=== PATIENT | female | born 1955 | race African-American/Black ===

== ENCOUNTER 2017-11-12 05:57 | Emergency (ER) | payer OTHER ==
[2017-11-12] MEDS ORDERED: Ziprasidone 20 MG CAP ONE (07:57)
--- NOTE | 2017-11-12 09:36 | CT ---
CT CERVICAL SPINE: Date: 11/12/17 Multiple axial tomograms obtained through the cervical spine with multiplanar reconstruction. INDICATION: Fall at half-way with injury to neck. FINDINGS: Cervical vertebra maintain normal height and alignment. There are degenerative changes of the cervica l spine with loss of the disc space at multiple levels. Degenerative spurring and spondylytic changes are most pronounced at the C5-6 level. No evidence of fracture identified. IMPRESSION: No evidence of cervical spine fracture. POS: [facility]
--- NOTE | 2017-11-12 09:37 | CT ---
CT BRAIN WITHOUT CONTRAST: HISTORY: Trauma, fall, right periorbital hematoma, history of dementia. FINDINGS: Comparison is made with the exam of 10/25/17. Infarction in the left parietooccipital lobe is again noted. Changes of cortical atrophy, and chroni c small-vessel ischemic disease are again seen. The ventricular size is stable and the basilar ciste rns patent. No evidence of acute infarct, hemorrhage, midline shift, or abnormal extraaxial fluid co llections are seen. The bony calvarium is intact. The visualized paranasal sinuses and mastoid air cells are well aerated. Old fracture of the right lamina papyracea is again noted. There is a right -sided soft tissue periorbital swelling/contusion. IMPRESSION: No CT evidence of acute intracranial process. POS: [facility]
--- NOTE | 2017-11-12 10:14 | CT ---
CT FACIAL BONES: Multiple axial tomograms were obtained through the facial bones with multiplaner reconstruction. HISTORY: [facility] to face. FINDINGS: Nasal bones appear intact. Evaluation of the orbits revealed a defect in the lamina papyracea anteriorly on the right. This may represent an old injury. There is no mucosal edema in the surrounding ethmoid air cells which would indicate a probable old stable injury. The orbits are otherwise intact. The paranasal sinuses are well aerated with no significant mucosal edema. The zygoma are intact. Maxilla appears intact. Mandible appears intact. The soft tissue windows reveal a large hematoma in the soft tissues of the right face involving the c heek anterior to the right maxillary sinus. IMPRESSION: 1. A large soft tissue hematoma subcutaneous tissues of the right face anterior to the right maxilla ry sinus. 2. There is a defect in the lamina papyracea anteriorly on the right. This probably represents an o ld injury as discussed above. 3. No other evidence of acute facial bone fracture. POS: [facility]
== END 2017-11-12 10:28 | disposition home or self-care (01) ==
LOC: ERS 05:57
DX: S00.83XA Contusion of other part of head, initial encounter (principal); R29.6 Repeated falls; F03.90 Unspecified dementia, unspecified severity, without behavioral disturbance, psychotic disturbance, mood disturbance, and anxiety; E11.9 Type 2 diabetes mellitus without complications; F31.9 Bipolar disorder, unspecified; W19.XXXA Unspecified fall, initial encounter
CPT/HCPCS: 70450; 70486; 72125

== ENCOUNTER 2017-12-07 16:20 | Inpatient (IN) | payer OTHER ==
[2017-12-07] MEDS ORDERED: Piperacillin/Tazobactam 4.5 GM VIAL ONE (17:43)
[2017-12-07] MEDS ORDERED: Lorazepam 2 MG/ML VIAL ONE (17:43)
[2017-12-07 17:54] LABS: #Eosinphils 0.1 thou/uL (0.0-0.7); #Lymphocytes 2.1 thou/uL (1.20-3.40); #Monocytes 0.7 thou/uL (0.11-0.59); %Basophils 0.2 % (0.0-1.0); %Eosinophils 0.8 % (0.0-10.0); %Lymphocytes 14.1 % (21.0-51.0); %Monocytes 4.7 % (0.0-10.0); %Neutrophils 80.1 % (42.0-75.0); Hemoglobin 11.8 g/dL (12.0-16.0); Mean Corpuscular HGB CONC 33.2 g/dL (32.0-36.0); Mean Corpuscular Hemoglobin 27.6 pg (27.0-31.0); Mean Corpuscular Volume 83.2 fl (81.0-99.0); Mean Platelet Volume 7.9 fL (7.4-10.4); Platelet Count 342 thou/uL (130-400); RBC Distribution Width 13.7 % (11.5-14.5); Red Blood Cell (RBC) Count 4.28 mill/uL (4.20-5.40)
[2017-12-07 18:07] LABS: ALT (SGPT) 29 U/L (8-55); AST (SGOT) 22 U/L (5-34); Albumin 3.7 g/dL (3.4-4.8); Alkaline Phosphatase 146 U/L (40-150); Anion Gap 15 mmol/L (10-20); BUN (Urea Nitrogen) 14 mg/dL (9.8-20.1); Bilirubin, Total 0.4 mg/dL (0.2-1.2); Calc. Creatinine Clearance 0 mL/min (70-130); Calcium 9.5 mg/dL (7.8-10.44); Carbon Dioxide 24 mmol/L (23-31); Chloride 107 mmol/L (98-107); Estimated GFR-MDRD Greater than 90; Globulin 3.5 g/dL (2.4-3.5); Glucose 128 mg/dL (80-115); Potassium 4.1 mmol/L (3.5-5.1); Protein, Total 7.2 g/dL (6.0-8.3); Sodium 142 mmol/L (136-145)
[2017-12-07] MEDS ORDERED: Clindamycin/D5W 900 mg/50 ml Premix Bag ONE (18:07)
--- NOTE | 2017-12-07 18:47 | RAD ---
RIGHT FOOT THREE VIEWS: 12/07/2017 HISTORY: Wound of the left great toe. COMPARISON: None. FINDINGS: There is suggestion of soft tissue swelling involving the dorsal and plantar aspect of the forefoot. There is soft tissue swelling involving the toes, especially the second toe and the great toe. No r adiopaque foreign body or subcutaneous gas. No displaced fracture or dislocation. There is subtle, cortical irregularity involving the distal cortex of the second distal phalanx, suspicious for possib le osteomyelitis. IMPRESSION: Soft tissue swelling, most pronounced at the level of the great toe and second toe. There is mild co rtical irregularity involving the distal phalanx of the second toe, on image 3 of 3, which may signif y osteomyelitis in the proper clinical setting. This could be best assessed via MRI. POS: [facility]
[2017-12-07] MEDS ORDERED: Morphine 4 MG/ML VIAL SLOW IVP PRN ×3 (21:00→22:07)
[2017-12-07] MEDS ORDERED: Ondansetron HCl/PF 4 MG/2 ML Vial IVP PRN ×2 (21:02→22:05)
[2017-12-07] MEDS ORDERED: Sodium Chloride 0.9% 1,000 ML IV SCH (21:02)
[2017-12-07] MEDS ORDERED: Ondansetron ODT 4 MG TAB SL PRN (21:02)
[2017-12-07] MEDS ORDERED: HYDROcodone/Acetaminophen 5/325 mg Tablet PO PRN (22:05)
[2017-12-07] MEDS ORDERED: Acetaminophen 650 MG Suppository PR PRN (22:05)
[2017-12-07] MEDS ORDERED: Loratadine 10 MG TAB PO PRN (22:05)
[2017-12-07] MEDS ORDERED: Benzonatate 100 MG CAP PO PRN (22:05)
[2017-12-07] MEDS ORDERED: Senokot 8.6 MG TAB PO PRN (22:05)
[2017-12-07] MEDS ORDERED: cloNIDine 0.1 MG TAB PO PRN (22:05)
[2017-12-07] MEDS ORDERED: Mag-Al 1200 mg/1200 mg/30 ML UDCUP PO PRN (22:05)
[2017-12-07] MEDS ORDERED: Calcium Carbonate 500 MG ChewTAB PO PRN (22:05)
[2017-12-07] MEDS ORDERED: Bisacodyl 10 MG SUPP PR PRN (22:05)
[2017-12-07] MEDS ORDERED: Diabetic Tussin 200 MG/10 ML UDCUP PO PRN (22:05)
[2017-12-07] MEDS ORDERED: Acetaminophen 325 MG TAB PO PRN (22:05)
[2017-12-07] MEDS ORDERED: Nitroglycerin 0.4 MG TAB (25 Tab Bottle) SL PRN (22:05)
[2017-12-07] MEDS ORDERED: Bisacodyl 5 MG TAB PO PRN (22:05)
[2017-12-07] MEDS ORDERED: Ziprasidone 20 MG VIAL IM PRN (22:10)
[2017-12-07] MEDS ORDERED: Sterile Water 10 ML VIAL FS PRN (22:28)
[2017-12-07] MEDS ORDERED: Piperacillin/Tazobactam 4.5 GM in Sodium Chloride 0.9% 100 ML IVPB SCH (23:59)
[2017-12-07] MEDS ORDERED: Piperacillin/Tazobactam 3.375 GM in Sodium Chloride 0.9% 100 ML IVPB SCH (23:59)
[2017-12-08] MEDS: Sodium Chloride 0.9% 1,000 ML IV SCH ×2 (00:16→12:04)
[2017-12-08] MEDS: hydrALAZINE 20 MG/ML VIAL SLOW IVP PRN ×2 (00:20→18:18)
[2017-12-08] MEDS ORDERED: Clindamycin/D5W 900 MG in Premix Bag 1 BAG IVPB SCH (02:00)
[2017-12-08 03:00] VITALS: BMI 24.6
[2017-12-08] MEDS ORDERED: Loperamide HCl 2 MG CAP PO PRN ×2 (04:15→04:33)
[2017-12-08] MEDS ORDERED: Dextrose 50% Abboject 50 ML SYRINGE SLOW IVP PRN (04:16)
[2017-12-08] MEDS ORDERED: Dextrose 5% in Water 1,000 ML IV PRN (04:16)
[2017-12-08] MEDS ORDERED: Insulin Regular 300 UNITS/3 ML VIAL SC PRN ×2 (04:16)
[2017-12-08 05:19] LABS: #Eosinphils 0.2 thou/uL (0.0-0.7); #Lymphocytes 1.9 thou/uL (1.20-3.40); #Monocytes 0.8 thou/uL (0.11-0.59); #Neutrophils 10.7 thou/uL (1.40-6.50); %Basophils 0.3 % (0.0-1.0); %Eosinophils 1.4 % (0.0-10.0); %Monocytes 5.7 % (0.0-10.0); %Neutrophils 78.7 % (42.0-75.0); Hemoglobin 12.3 g/dL (12.0-16.0); Mean Corpuscular HGB CONC 33.8 g/dL (32.0-36.0); Mean Corpuscular Hemoglobin 28.2 pg (27.0-31.0); Mean Corpuscular Volume 83.4 fl (81.0-99.0); Mean Platelet Volume 8.2 fL (7.4-10.4); Platelet Count 348 thou/uL (130-400); RBC Distribution Width 13.6 % (11.5-14.5); Red Blood Cell (RBC) Count 4.35 mill/uL (4.20-5.40); White Blood Cell (WBC) Count 13.6 thou/uL (4.8-10.8)
[2017-12-08 05:53] LABS: Anion Gap 13 mmol/L (10-20); BUN (Urea Nitrogen) 13 mg/dL (9.8-20.1); Calc. Creatinine Clearance 88 mL/min (70-130); Calcium 9.3 mg/dL (7.8-10.44); Carbon Dioxide 22 mmol/L (23-31); Chloride 108 mmol/L (98-107); Estimated GFR-MDRD Greater than 90; Glucose 129 mg/dL (80-115); Sodium 139 mmol/L (136-145)
--- NOTE | 2017-12-08 05:54 | HP ---
DATE OF ADMISSION: 12/07/2017 PRIMARY CARE PHYSICIAN: Dr. Iván Liang. CHIEF COMPLAINT: Left-toe wound. HISTORY OF PRESENT ILLNESS: Ms. Perez is a 62-year-old female with past medical history of severe de mentia, who [facility] the above-mentioned complaint. History is diane nly obtained by the chart review as the patient has severe dementia and is unable to provide any hist ory. According to the EMR, the patient fell twice earlier this month. Most recently, she was seen in the ER on 12/02/2017 and was found to have right orbital fracture along with nasal fractures. She was chicas pposed to follow up with oral maxillofacial surgeon as an outpatient. She was sent to the ER for com plaints of left second-toe wound. She underwent general evaluation in the ER including a foot x-ray, which was concerning for osteomyelitis. She was otherwise hemodynamically stable. She did have maru kocytosis with left shift with WBCs of 15. She also was found to have elevated lactic acid at 2.4. She was given empiric antibiotics and blood cultures were obtained and she is now being admitted for further evaluation and care. PAST MEDICAL HISTORY: Severe dementia, otherwise unable to corroborate. PAST SURGICAL HISTORY: None as per the EMR. PSYCHIATRIC HISTORY: Bipolar disorder. SOCIAL HISTORY: No history of drug, tobacco, or alcohol abuse as per the EMR. She is a [facility]iary resident. ALLERGIES: No known medication allergies. FAMILY HISTORY: Unable to obtain as the patient has severe dementia. CURRENT MEDICATIONS: As per the record Abilify 20 mg at bedtime, memantine 10 mg in the morning, tra zodone 50 mg at bedtime, metformin 1000 mg p.o. b.i.d., aspirin 81 mg daily, Depakote 2 capsules p.o. b.i.d., Geodon 20 mg p.o. b.i.d., loperamide as needed, lithium carbonate 150 mg p.o. b.i.d., Lantus 15 units b.i.d., and Potassium chloride 10 mg daily. REVIEW OF SYSTEMS: Unobtainable as the patient has severe dementia and is not following any commands verbal or tactile at this time. LABORATORY DATA: CBC shows WBCs at 15 with 80% neutrophils, hemoglobin 11.8, otherwise unremarkable. Serum chemistry shows blood sugar of 128, lactic acid 2.4. Foot x-ray by my review shows concern f or left second-toe osteomyelitis including cortical irregularity of the distal phalanx. PHYSICAL EXAMINATION: VITAL SIGNS: Most recent vital signs temperature 98, pulse of 102, blood pressure 184/106, respirati ons 18, saturating 95% on room air. GENERAL: No acute distress. She is somnolent and difficult to arouse and does not follow any comman ds, but appears comfortable. HEENT: Mucous membrane is slightly dry. No oropharyngeal exudate or erythema. Head is normocephali c, atraumatic. Pupils equal, reactive to light truly. NECK: Supple without any lymphadenopathy, JVD, or bruit. CHEST: Clear to auscultation without any wheezing, rales, or rhonchi. Rate and rhythm is regular wi thout any murmur, rubs, or gallops. ABDOMEN: Soft, nontender, nondistended. EXTREMITIES: Free of any cyanosis, clubbing, or edema. Left second toe examination reveal erythema and some mild swelling of the toes, extending upwards into the foot with dried shallow ulcer on the t ip of the left second toe. NEUROLOGIC: Largely nonfocal, but unable to complete because of the severe dementia that the patient cannot follow any commands. PSYCHIATRIC: Somnolent and calm at this time. IMPRESSION AND PLAN: 1. Left second toe osteomyelitis. At this time, we will continue the empiric antibiotic and follow the results of the blood culture. Consult General Surgery for possible need for I&D versus amputatio n. Start her on gentle IV fluid hydration. 2. Sepsis secondary to #1 with elevated lactic acid. We will start hydration and IV antibiotics as above. 3. Orbital and nasal bone fracture. I do not think that the patient has any capability of keeping h er outpatient appointment for the recent fractures. We will consult Oral Maxillofacial Surgeon while the patient is here and provide her with empiric pain medications. 4. Severe dementia. Restart home medications with caution. 5. Deep venous thrombosis and gastrointestinal prophylaxis. 6. Possible diabetes mellitus, as the patient takes insulin and metformin. We will start her on ins ulin sliding scale and hold the metformin and Lantus for now. The patient might need to be n.p.o. fo r possible surgery. DISPOSITION: Ms. Perez is currently being admitted for left second-toe osteomyelitis. She has sever e dementia at this time. Estimated length of stay is at least 2-3 midnight. Further management will depend upon her clinical course.
[2017-12-08] MEDS: Piperacillin/Tazobactam 3.375 GM in Sodium Chloride 0.9% 100 ML IVPB SCH ×3 (06:21→18:18)
[2017-12-08] MEDS ORDERED: Vancomycin HCl 1 GM in Premix Bag 1 BAG IVPB SCH (07:00)
[2017-12-08] MEDS: Potassium Chloride 10 MEQ TAB PO SCH (08:06)
[2017-12-08] MEDS: Divalproex Sodium 125 mg Sprinkle Capsule PO SCH ×2 (08:06→20:33)
[2017-12-08] MEDS: Ziprasidone 20 MG CAP PO SCH ×2 (08:07→18:17)
[2017-12-08] MEDS: Lithium Carbonate 150 MG CAP PO SCH ×2 (08:07→20:34)
[2017-12-08] MEDS ORDERED: Ziprasidone 20 MG VIAL IM SCH (08:30)
[2017-12-08] MEDS: Vancomycin HCl 1 GM in Premix Bag 1 BAG IVPB SCH ×2 (08:58→20:29)
[2017-12-08] MEDS: Enoxaparin Sodium 40 MG/0.4 ML SYRINGE SC SCH (08:58)
[2017-12-08] MEDS: Famotidine/PF 20 mg/2ml Vial SLOW IVP SCH (12:04)
--- NOTE | 2017-12-08 12:49 | PDOC.PN ---
- Subjective Encounter Start Date: 12/08/17 Encounter Start Time: 12:52 Subjective: No acute events overnight. -: Has been combative and aggressive. Only oriented to person occasionally. -: Difficult to reorient. - Objective MAR Reviewed: Yes Vital Signs & Weight: Vital Signs (12 hours) Temp Pulse Resp BP BP BP Pulse Ox 12/08/17 11:20 97.4 F L 80 16 182/81 H 99 12/08/17 08:00 97.6 F 87 16 121/94 H 121/94 H 95 12/08/17 04:00 97.6 F 86 16 152/88 H 95 Weight Weight 139 lb Result Diagrams: 12/08/17 04:33 12/08/17 04:33 Additional Labs: Accuchecks 12/08/17 04:50 POC Glucose 131 H Phys Exam - Physical Examination Constitutional: NAD HEENT: PERRLA, moist MMs, sclera anicteric, oral pharynx no lesions Neck: no JVD, supple, full ROM Respiratory: no wheezing, no rales, no rhonchi, clear to auscultation bilateral Cardiovascular: RRR, no significant murmur, no rub Gastrointestinal: soft, non-tender, no distention, positive bowel sounds Musculoskeletal: no edema, pulses present Unable to cooperate 2/2 severe dementia. Skin: no rash, normal turgor Dx/Plan (1) Toe osteomyelitis, left Code(s): M86.9 - OSTEOMYELITIS, UNSPECIFIED Status: Acute Comment: Started on IV antibiotics. Surgical consult in place. f/u blood cultures. (2) Sepsis Code(s): A41.9 - SEPSIS, UNSPECIFIED ORGANISM Status: Acute Qualifiers: Sepsis type: sepsis due to unspecified organism Qualified Code(s): A41.9 - Sepsis, unspecified organism Comment: Improving. F/u blood cultures. Continue IVF and antibiotics. f/u blood cultures. (3) Orbital fracture Code(s): S02.80XA - FX OTH SKULL AND FACIAL BONES, UNSPECIFIED SIDE, INIT Status: Acute Qualifiers: Encounter type: subsequent encounter Fracture healing: with routine healing Comment: OMF reviewed. Will see patient on outpatient basis. (4) Severe dementia Code(s): F03.90 - UNSPECIFIED DEMENTIA WITHOUT BEHAVIORAL DISTURBANCE Status: Chronic Comment: Delirium precautions. f/u UDS and UA (5) DM2 (diabetes mellitus, type 2) Status: Chronic Qualifiers: Diabetes mellitus superintendent container terminal insulin use: with superintendent container terminal use Diabetes mellitus complication status: with unspecified complications Qualified Code(s) : E11.8 - Type 2 diabetes mellitus with unspecified complications; Z79.4 - custodial (current) use of insulin; Z79.4 - exterminator helper termite (current) use of insulin; Z79.4 - custodial (current) use of insulin; Z79.4 - custodial (current) use of insulin Comment: Continue SSI, obtain SSI. Controlled. - Plan cont current plan of care, continue antibiotics, DVT proph w/lovenox * . Review of Systems - Medications/Allergies Allergies/Adverse Reactions: Allergies Allergy/AdvReac Type Severity Reaction Status Date / Time No Known Drug Allergies Allergy Verified 12/07/17 20:52 Medications: Current Medications Acetaminophen (Tylenol) 650 mg PO Q4H PRN PRN Reason: Headache/Fever or Pain Acetaminophen (Tylenol) 650 mg TN Q4H PRN PRN Reason: Headache/Fever or Pain Hydrocodone Bitart/Acetaminophen ([place] 5/325) 1 tab PO Q4H PRN PRN Reason: Moderate Pain (4-6) Al Hydroxide/Mg Hydroxide (Maalox) 30 ml PO Q6H PRN PRN Reason: Heartburn or Indigestion Aripiprazole (Abilify) 20 mg PO HS [facility] Aspirin (Aspirin Chewable) 81 mg PO DAILY [facility] Last Admin: 12/08/17 08:06 Dose: Not Given Benzonatate (Tessalon) 100 mg PO Q4H PRN PRN Reason: Cough Bisacodyl (Dulcolax) 10 mg PO DAILYPRN PRN PRN Reason: Constipation Bisacodyl (Dulcolax) 10 mg TN Q24H PRN PRN Reason: Constipation Calcium Carbonate (Tums) 1,000 mg PO Q4H PRN PRN Reason: Heartburn or Indigestion Clonidine (Catapres) 0.1 mg PO Q4H PRN PRN Reason: Systolic BP > 160 Dextrose/Water (Dextrose 50%) 25 gm SLOW IVP PRN PRN PRN Reason: Hypoglycemia Divalproex Sodium (Depakote Sprinkle) 250 mg PO BID [facility] Last Admin: 12/08/17 08:06 Dose: Not Given Enoxaparin Sodium (Lovenox) 40 mg SC 0900 [facility] Last Admin: 12/08/17 08:58 Dose: 40 mg Famotidine (Pepcid) 20 mg SLOW IVP Q12HR [facility] Last Admin: 12/08/17 12:04 Dose: Not Given Glucagon (Glucagon) 1 mg IM PRN PRN PRN Reason: Hypoglycemia Guaifenesin (Robitussin Sf) 200 mg PO Q4H PRN PRN Reason: Cough Hydralazine HCl (Apresoline) 10 mg SLOW IVP Q4H PRN PRN Reason: Systolic BP > 170 Last Admin: 12/08/17 00:20 Dose: 10 mg Sodium Chloride (Normal Saline 0.9%) 1,000 mls @ 75 mls/hr IV .[id number] [facility] Last Admin: 12/08/17 12:04 Dose: 1,000 mls Vancomycin HCl 1 gm/ Device 200 mls @ 200 mls/hr IVPB 0600,1800 [facility] Last Admin: 12/08/17 08:58 Dose: 200 mls Piperacillin Sod/Tazobactam (Sod 3.375 gm/ Sodium Chloride) 100 mls @ 200 mls/ hr IVPB 0530,1130,1730,2330 [facility] Last Admin: 12/08/17 12:02 Dose: 100 mls Dextrose/Water (D5w) 1,000 mls @ 0 mls/hr IV .Q0M PRN; As Directed PRN Reason: Hypoglycemia Insulin Human Regular (Humulin R) 0 units SC .MODERATE SLIDING SC PRN PRN Reason: Moderate Correctional Scale Insulin Human Regular (Humulin R) 0 units SC .BEDTIME SLIDING SC PRN PRN Reason: Bedtime Correctional Scale Lactulose (Lactulose) 20 gm PO DAILYPRN PRN PRN Reason: Constipation [place] Carbonate ([place] Carbonate) 150 mg PO BID [facility] Last Admin: 12/08/17 08:07 Dose: Not Given Loperamide HCl (Imodium) 4 mg PO ONE PRN PRN Reason: DIARRHEA/ LOOSE STOOL Stop: 01/07/18 04:16 Loperamide HCl (Imodium) 2 mg PO PRN PRN PRN Reason: Diarrhea/Loose Stools Loratadine (Claritin) 10 mg PO DAILYPRN PRN PRN Reason: Sinus Symptoms Memantine (Namenda) [facility] [place] Last Admin: 12/08/17 08:06 Dose: Not Given Miscellaneous Medication (Pharmacy To Dose) 1 each IVPB PRN PRN PRN Reason: SSSI, R/O OSTEO Morphine Sulfate (Morphine) 2 mg SLOW IVP Q4H PRN PRN Reason: Severe Pain (7-10) Nitroglycerin (Nitrostat) 0.4 mg SL Q5MIN PRN PRN Reason: Chest Pain Ondansetron HCl (Zofran) 4 mg IVP Q6H PRN PRN Reason: Nausea/Vomiting Potassium Chloride (Klor-Con 10) 10 meq PO QAM[facility] Last Admin: 12/08/17 08:06 Dose: Not Given Senna (Senokot) 2 tab PO HSPRN PRN PRN Reason: Constipation Sterile Water (Water For Injection) 1.2 ml FS Q4H PRN PRN Reason: GEODON RECONSTITUTION Trazodone HCl (Desyrel) 50 mg PO [facility] Ziprasidone (Geodon) 10 mg IM Q4H PRN PRN Reason: Agitation Ziprasidone (Geodon) 20 mg PO BID-[facility] Last Admin: 12/08/17 08:07 Dose: Not Given
[2017-12-08 13:08] LABS: Amphetamine Not Detected (NotDetected); Barbiturates Screen Not Detected (NotDetected); Benzodiazepine Screen Detected (NotDetected); Cocaine Metabolite Screen Not Detected (NotDetected); Medtox Control Line Valid? VALID (VALID); Medtox Reader # READER 1; Methadone Not Detected (NotDetected); Methamphetamine Not Detected (NotDetected); Opiate Screen Not Detected (NotDetected); Oxycodone Screen Not Detected (NotDetected); Phencyclidine (PCP) Not Detected (NotDetected); THC/Cannabinoid Screen Not Detected (NotDetected); Tricyclic Screen Not Detected (NotDetected)
[2017-12-08 16:19] LABS: Bilirubin Negative (Negative); Blood, Urine Small (Negative); Clarity CLOUDY (Clear); Glucose, Urine (Dipstick) Negative (Negative); Leukocyte Large (Negative); Nitrite Negative (Negative); Protein, Urine (Dipstick) 30 mg/dL (Neg-Trace); pH, Urine 7.5 (5.0-9.0)
[2017-12-08 16:21] LABS: Bacteria/HPF None Seen HPF (None Seen); Hyaline Casts/LPF 0-3 HYALINE CAST LPF (0-3 Hyaline); Squamous Epithelial None Seen HPF (0-3)
[2017-12-08] MEDS: traZODone HCl 50 MG TAB PO SCH (20:32)
[2017-12-08] MEDS: Aripiprazole 10 MG TAB PO SCH (20:34)
[2017-12-08] MEDS: Famotidine 40 MG/4 ML VIAL SLOW IVP SCH (21:50)
--- NOTE | 2017-12-08 23:04 | CON ---
DATE OF CONSULTATION: 12/08/2017 REQUESTING PHYSICIAN: Dr. Chamberlain. CHIEF COMPLAINT: Osteomyelitis of the right second toe. HISTORY OF PRESENT ILLNESS: The patient is a 62-year-old woman with diabetes and has apparently a bi polar disorder and severe dementia who is a jail resident. The caretakers at the nursing sara e sent her to the hospital apparently because of red weepy changes to her right second toe and she sands d plain film findings suggestive of osteomyelitis involving the distal phalanx. We were requested to evaluate the patient from a vascular standpoint by Dr. Chamberlain. The patient is noncommunicative in the sense that while verbose and fluent, she is nonsensical essentially perseverating. HOME MEDICATIONS: Listed as Abilify, memantine, trazodone, Depakote, Geodon, lithium carbonate, metf ormin, baby aspirin, Lantus insulin, potassium, p.r.n. Tylenol, and p.r.n. loperamide. ALLERGIES: There are no medical allergies reported. REVIEW OF SYSTEMS AND FAMILY HISTORY: She is not able to give any sort of review of system or family history. PHYSICAL EXAMINATION: GENERAL: She looks much older than her stated age and talks nonsensical phrases. She is wearing a d iaper and is restrained, other examiners report her as being at times combative and aggressive. VITAL SIGNS: Her temperature is 98.2, heart rate 85, blood pressure 188/77. LUNGS: She has clear breath sounds. CARDIOVASCULAR: Regular rate and rhythm. EXTREMITIES: She has palpable radial pulses, palpable femoral pulses with the left. Perhaps being a little bit diminished, I am not able to palpate popliteal, dorsalis pedis or posterior tibial pulses . Capillary refill in the feet is somewhere around 1 to 1-1/2 seconds. SKIN: She has bruising about her right eye from her recent orbital fracture and she has some abrasio ns on her right knee and pretibial region. The right second toe is swollen, red and the very tip of it is moist and macerated, consistent with evolving gangrenous changes. The lower legs are slightly cool and there are some atrophic skin changes. LABORATORY DATA: Her white count on admission was 15 and this morning was 13.6, hemoglobin this morn ing was 12.3 and platelets 348,000. Electrolytes are normal. Glucose has been in the 120s, BUN 13, creatinine 0.67. LFTs are normal and albumin 3.7. IMPRESSION AND RECOMMENDATIONS: I would think that this patient is a very poor revascularization can didate and I would not really pursue much in the way of vascular workup. I would probably just simpl y start with amputation of that toe and even if that does not heal, I would be reluctant this severel y demented woman about pursuing revascularization.
[2017-12-09] MEDS: Famotidine/PF 20 mg/2ml Vial SLOW IVP SCH (00:23)
[2017-12-09] MEDS: Piperacillin/Tazobactam 3.375 GM in Sodium Chloride 0.9% 100 ML IVPB SCH ×4 (00:24→16:55)
[2017-12-09 05:57] LABS: #Eosinphils 0.2 thou/uL (0.0-0.7); #Lymphocytes 1.6 thou/uL (1.20-3.40); #Monocytes 0.9 thou/uL (0.11-0.59); #Neutrophils 9.6 thou/uL (1.40-6.50); %Basophils 0.1 % (0.0-1.0); %Eosinophils 1.8 % (0.0-10.0); %Lymphocytes 13.2 % (21.0-51.0); %Neutrophils 77.9 % (42.0-75.0); Hemoglobin 12.6 g/dL (12.0-16.0); Mean Corpuscular HGB CONC 33.7 g/dL (32.0-36.0); Mean Corpuscular Hemoglobin 27.6 pg (27.0-31.0); Mean Corpuscular Volume 81.9 fl (81.0-99.0); Mean Platelet Volume 7.9 fL (7.4-10.4); Platelet Count 372 thou/uL (130-400); RBC Distribution Width 13.3 % (11.5-14.5); Red Blood Cell (RBC) Count 4.58 mill/uL (4.20-5.40); White Blood Cell (WBC) Count 12.3 thou/uL (4.8-10.8)
[2017-12-09 06:09] LABS: Hemoglobin A1c 6.6 % (4.0-6.0); Vancomycin, Trough 11.2 ug/mL
[2017-12-09 06:13] LABS: Anion Gap 15 mmol/L (10-20); BUN (Urea Nitrogen) 11 mg/dL (9.8-20.1); Calc. Creatinine Clearance 88 mL/min (70-130); Calcium 9.3 mg/dL (7.8-10.44); Carbon Dioxide 23 mmol/L (23-31); Chloride 103 mmol/L (98-107); Estimated GFR-MDRD Greater than 90; Glucose 117 mg/dL (80-115); Potassium 3.8 mmol/L (3.5-5.1); Sodium 137 mmol/L (136-145)
[2017-12-09] MEDS ORDERED: Vancomycin HCl 1.5 GM in Sodium Chloride 0.9% 250 ML 300 ML IVPB SCH (06:45)
[2017-12-09] MEDS: Sodium Chloride 0.9% 1,000 ML IV SCH ×3 (07:07→21:25)
[2017-12-09] MEDS: Vancomycin HCl 1 GM in Premix Bag 1 BAG IVPB SCH (07:22)
[2017-12-09] MEDS ORDERED: Amlodipine 10 MG TAB PO SCH (08:00)
[2017-12-09] MEDS: Potassium Chloride 10 MEQ TAB PO SCH (08:35)
[2017-12-09] MEDS: Enoxaparin Sodium 40 MG/0.4 ML SYRINGE SC SCH (08:35)
[2017-12-09] MEDS: Ziprasidone 20 MG CAP PO SCH ×2 (08:35→16:58)
[2017-12-09] MEDS: Divalproex Sodium 125 mg Sprinkle Capsule PO SCH ×2 (08:35→20:46)
[2017-12-09] MEDS: Amlodipine 10 MG TAB PO SCH (08:35)
[2017-12-09] MEDS: Lithium Carbonate 150 MG CAP PO SCH ×2 (08:36→20:46)
--- NOTE | 2017-12-09 08:38 | CON ---
DATE OF CONSULTATION: 12/09/2017 CHIEF COMPLAINT: Right second toe diabetic infection. HISTORY: Ms. Perez is a 62-year-old woman with severe dementia who was sent to the emergency room fr om the shelter for redness and swelling of her right second toe. She cannot give me any history regarding this toe and whether she might have injured it or had a chronic sore there. She cannot te ll me whether she has had any drainage or fever. Her answers to questions are mostly nonsensical. H owever, she has not had any high fevers since being in the hospital. PAST MEDICAL HISTORY: As per the chart, diabetes, dementia, and history of alcohol abuse. PAST SURGICAL HISTORY: Unknown. The patient has a healed lower midline incision, but cannot tell me what operation she had. OUTPATIENT MEDICATIONS: According to the computer record include Glargine insulin 15 units subcu b.i .d., metformin 1000 mg p.o. b.i.d., Abilify 20 mg p.o. at bedtime, aspirin 81 mg p.o. daily, divalpro ex 250 mg p.o. b.i.d., lithium 150 mg p.o. b.i.d., memantine 10 mg p.o. q.a.m., potassium chloride 10 mEq p.o. daily, Geodon 20 mg p.o. b.i.d. and p.r.n.s including trazodone, Tylenol and loperamide. INPATIENT MEDICATIONS: Amlodipine, Abilify, aspirin, sliding scale insulin, divalproex, Lovenox, Pe pcid, [place], memantine, Zosyn, potassium, vancomycin, Geodon and multiple PRNS. PSYCHIATRIC HISTORY: Bipolar disease and dementia per the chart. REVIEW OF SYSTEMS: Not obtainable as the patient is not cooperative and does not answer questions me aningfully. SOCIAL HISTORY: Per daughter, the patient was a smoker for many years, but quit about 20 years ago a nd she did drink in the past, but not recently. Drug use is unknown. PHYSICAL EXAMINATION: GENERAL: The patient was somewhat agitated when I saw her, but did not appear to be in any physical distress. VITAL SIGNS: She has been afebrile since her admission. Heart rate is in the 70s and 80s. Blood pr essure is variable ranging from the 150s to 180s systolic with normal diastolic in the 70s. She has been 97-98% saturated on room air and has a respiratory rate is 16-18. HEENT: Unremarkable. I do not appreciate any lymphadenopathy or thyroid nodules. HEART: Regular in its rate and rhythm without murmurs, rubs or gallops. LUNGS: She has occasional wheezing, but is otherwise clear.. ABDOMEN: Soft and nondistended. She does not exhibit any tenderness to palpation. She has a healed lower midline incision. No obvious hernias. EXTREMITIES: Extremities are cool and I do not appreciate any pedal or popliteal pulses bilaterally. She does have normal femoral pulses. She has some thinning of the skin and very little hair on her lower legs. Her right second toe is swollen and an abscess surrounding the nail bed. There is a dr farrah point just above the base of the nail which probes fairly deep likely to the swelling is confi janes to the tip of the toe. The remainder of the toe is fairly healthy in appearance. She does not h ave any lymphangitic streaking, swelling or cellulitis. NEURO: No obvious focal deficits, the patient is moving all extremities spontaneously, but does not cooperate with exam. PSYCHIATRIC: Does not seem to comprehend or appropriately answer any questions. Her speech is compr ehensible, but does not make sense. LABORATORY DATA: White count is elevated at 12 to 13. This is down somewhat from 15 when she was ad mitted. She does have a left shift. Electrolytes and renal function are normal. Blood sugars have ranged from 117 to 131, hemoglobin A1c is 6.6. UA was positive for blood, leukocyte esterase, red ce lls and white cells and had some protein in it as well. Toxicology was positive for benzodiazepines. Her lithium level was 0.13 and her valproate level was 18.4. Blood cultures are no growth to date. I do not see a urine culture. X-ray of the foot at the time of her admission showed findings suspicious for osteomyelitis of the tu ft of the distal phalanx. ASSESSMENT: Diabetic infection of the right second toe with physical findings and x-ray consistent w ith osteomyelitis of the distal phalanx. I have recommended amputation. She has been seen by Vascul ar Surgery and they did not feel that she is a candidate for revascularization, although they agree t hat her peripheral circulation is abnormal. I do not think she is a candidate for hyperbaric therapy either because of her agitation, but we will try to get her fitted with a VAC dressing postoperative ly and hopefully this will heal. If the wound is clean at the level of the amputation as I expect it will be, then I will likely place a VAC dressing for a short period of time and then do a delayed pr imary closure since I doubt that the patient will be tolerant of a VAC dressing ferry terminal agent. If she do es not heal, then I will ask Vascular Surgery to consider angiography. She may be a candidate for an gioplasty if there is something focal in the femoral vessels, although she would require anesthesia f or even an angiogram due to her severe dementia. I did speak with her daughter regarding the patient's diagnosis and recommended treatment and she is in agreement with the plan. She understands the risks of surgery which include, but are not limited to bleeding, infection, risks of anesthesia, failure to heal, and need for further procedures.
[2017-12-09] MEDS: Famotidine 40 MG/4 ML VIAL SLOW IVP SCH ×2 (08:39→21:22)
[2017-12-09] MEDS ORDERED: Midazolam HCl 2 mg/2 ml Vial ONE (09:50)
[2017-12-09] MEDS ORDERED: Fentanyl 100 MCG/2 ML VIAL ONE (09:50)
[2017-12-09] MEDS ORDERED: Bupivacaine/Epinephrine 0.25% 30 ML VIAL ONE (10:10)
[2017-12-09] MEDS ORDERED: Bacitracin Zinc Ointment 30 gm TUBE ONE (10:10)
[2017-12-09] MEDS ORDERED: Promethazine HCl 25 MG/ML VIAL SLOW IVP PRN (11:23)
[2017-12-09] MEDS ORDERED: Ondansetron HCl/PF 4 MG/2 ML Vial IVP PRN (11:23)
[2017-12-09] MEDS ORDERED: Promethazine HCl 25 MG/ML VIAL IM PRN (11:23)
--- NOTE | 2017-12-09 14:21 | PDOC.PN ---
- Subjective Encounter Start Date: 12/09/17 Encounter Start Time: 14:24 Subjective: No complaints. -: No acute events overnight - Objective MAR Reviewed: Yes Vital Signs & Weight: Vital Signs (12 hours) Temp Pulse Resp BP BP Pulse Ox 12/09/17 11:55 97.7 F 91 18 122/72 97 12/09/17 08:35 75 12/09/17 08:00 98.3 F 75 18 98 12/09/17 07:38 97.5 F L 75 16 157/78 H 99 Weight Admit Weight 139 lb Weight 139 lb Result Diagrams: 12/09/17 05:11 12/09/17 05:11 Additional Labs: Accuchecks 12/09/17 12/08/17 12:03 17:58 POC Glucose 118 H 128 H Phys Exam - Physical Examination Constitutional: NAD HEENT: moist MMs, sclera anicteric, TM's clear Neck: no JVD, supple, full ROM Respiratory: no wheezing, no rales, no rhonchi, clear to auscultation bilateral Cardiovascular: RRR, no significant murmur, no rub Gastrointestinal: soft, non-tender, no distention, positive bowel sounds Musculoskeletal: no edema, pulses present Unable to cooperate w exam- severe dementia. Skin: no rash, normal turgor Dx/Plan (1) Toe osteomyelitis, left Code(s): M86.9 - OSTEOMYELITIS, UNSPECIFIED Status: Acute Comment: Scheduled for amputation today. On IV antibiotics. f/u blood cultures. (2) Sepsis Code(s): A41.9 - SEPSIS, UNSPECIFIED ORGANISM Status: Acute Qualifiers: Sepsis type: sepsis due to unspecified organism Qualified Code(s): A41.9 - Sepsis, unspecified organism Comment: Improving. F/u blood cultures. Continue IVF and antibiotics. f/u blood cultures. Urine cultures growing gram negative rods. Follow sensitivities. (3) Orbital fracture Code(s): S02.80XA - FX OTH SKULL AND FACIAL BONES, UNSPECIFIED SIDE, INIT Status: Acute Qualifiers: Encounter type: subsequent encounter Fracture healing: with routine healing Comment: OMF reviewed. Will see patient on outpatient basis. (4) Severe dementia Code(s): F03.90 - UNSPECIFIED DEMENTIA WITHOUT BEHAVIORAL DISTURBANCE Status: Chronic Comment: Delirium precautions. f/u UDS and UA (5) DM2 (diabetes mellitus, type 2) Status: Chronic Qualifiers: Diabetes mellitus long term care pharmacist insulin use: with detention use Diabetes mellitus complication status: with unspecified complications Qualified Code(s) : E11.8 - Type 2 diabetes mellitus with unspecified complications; Z79.4 - long-term (current) use of insulin; Z79.4 - termite control technician (current) use of insulin; Z79.4 - long-term (current) use of insulin; Z79.4 - long-term (current) use of insulin Comment: Continue SSI, obtain SSI. Controlled. A1c 6.6. - Plan cont current plan of care, plan discussed w/ family, DVT proph w/lovenox * . Review of Systems - Medications/Allergies Allergies/Adverse Reactions: Allergies Allergy/AdvReac Type Severity Reaction Status Date / Time No Known Drug Allergies Allergy Verified 12/07/17 20:52 Medications: Current Medications Acetaminophen (Tylenol) 650 mg PO Q4H PRN PRN Reason: Headache/Fever or Pain Acetaminophen (Tylenol) 650 mg SC Q4H PRN PRN Reason: Headache/Fever or Pain Hydrocodone Bitart/Acetaminophen ([place] 5/325) 1 tab PO Q4H PRN PRN Reason: Moderate Pain (4-6) Al Hydroxide/Mg Hydroxide (Maalox) 30 ml PO Q6H PRN PRN Reason: Heartburn or Indigestion Amlodipine Besylate (Norvasc) 10 mg PO DAILY [facility] Last Admin: 12/09/17 08:35 Dose: Not Given Aripiprazole (Abilify) 20 mg PO [facility] Last Admin: 12/08/17 20:34 Dose: Not Given Aspirin (Aspirin Chewable) 81 mg PO DAILY [facility] Last Admin: 12/09/17 08:35 Dose: Not Given Benzonatate (Tessalon) 100 mg PO Q4H PRN PRN Reason: Cough Bisacodyl (Dulcolax) 10 mg PO DAILYPRN PRN PRN Reason: Constipation Bisacodyl (Dulcolax) 10 mg SC Q24H PRN PRN Reason: Constipation Calcium Carbonate (Tums) 1,000 mg PO Q4H PRN PRN Reason: Heartburn or Indigestion Clonidine (Catapres) 0.1 mg PO Q4H PRN PRN Reason: Systolic BP > 160 Dextrose/Water (Dextrose 50%) 25 gm SLOW IVP PRN PRN PRN Reason: Hypoglycemia Divalproex Sodium (Depakote Sprinkle) 250 mg PO BID [facility] Last Admin: 12/09/17 08:35 Dose: Not Given Enoxaparin Sodium (Lovenox) 40 mg SC 0900 [facility] Last Admin: 12/09/17 08:35 Dose: Not Given Famotidine (Pepcid) 20 mg SLOW IVP Q12HR [facility] Last Admin: 12/09/17 08:39 Dose: 20 mg Fentanyl (Pacu-Sublimaze) 50 mcg SLOW IVP Q10MIN PRN PRN Reason: Moderate to Severe Pain (6-10) Stop: 12/09/17 14:23 Glucagon (Glucagon) 1 mg IM PRN PRN PRN Reason: Hypoglycemia Guaifenesin (Robitussin Sf) 200 mg PO Q4H PRN PRN Reason: Cough Hydralazine HCl (Apresoline) 10 mg SLOW IVP Q4H PRN PRN Reason: Systolic BP > 170 Last Admin: 12/08/17 18:18 Dose: 10 mg Sodium Chloride (Normal Saline 0.9%) 1,000 mls @ 75 mls/hr IV .[id number] [facility] Last Admin: 12/09/17 07:07 Dose: 1,000 mls Piperacillin Sod/Tazobactam (Sod 3.375 gm/ Sodium Chloride) 100 mls @ 200 mls/ hr IVPB 0530,1130,1730,2330 [facility] Last Admin: 12/09/17 11:55 Dose: 100 mls Dextrose/Water (D5w) 1,000 mls @ 0 mls/hr IV .Q0M PRN; As Directed PRN Reason: Hypoglycemia Vancomycin HCl 1.5 gm/ Sodium (Chloride) 300 mls @ 200 mls/hr IVPB 0600,1800 [facility] Insulin Human Regular (Humulin R) 0 units SC .MODERATE SLIDING SC PRN PRN Reason: Moderate Correctional Scale Insulin Human Regular (Humulin R) 0 units SC .BEDTIME SLIDING SC PRN PRN Reason: Bedtime Correctional Scale Lactulose (Lactulose) 20 gm PO DAILYPRN PRN PRN Reason: Constipation [place] Carbonate ([place] Carbonate) 150 mg PO BID [facility] Last Admin: 12/09/17 08:36 Dose: Not Given Loperamide HCl (Imodium) 4 mg PO ONE PRN PRN Reason: DIARRHEA/ LOOSE STOOL Stop: 01/07/18 04:16 Loperamide HCl (Imodium) 2 mg PO PRN PRN PRN Reason: Diarrhea/Loose Stools Loratadine (Claritin) 10 mg PO DAILYPRN PRN PRN Reason: Sinus Symptoms Memantine (Namenda) 10 mg PO [facility] Last Admin: 12/09/17 08:36 Dose: Not Given Miscellaneous Medication (Pharmacy To Dose) 1 each IVPB PRN PRN PRN Reason: SSSI, R/O OSTEO Morphine Sulfate (Morphine) 2 mg SLOW IVP Q4H PRN PRN Reason: Severe Pain (7-10) Nitroglycerin (Nitrostat) 0.4 mg SL Q5MIN PRN PRN Reason: Chest Pain Ondansetron HCl (Zofran) 4 mg IVP Q6H PRN PRN Reason: Nausea/Vomiting Ondansetron HCl (Pacu-Zofran) 4 mg IVP ONE PRN PRN Reason: Nausea/Vomiting Stop: 12/09/17 14:23 Potassium Chloride (Klor-Con 10) [address] [facility] Last Admin: 12/09/17 08:35 Dose: Not Given Promethazine HCl (Pacu-Phenergan) 6.25 mg SLOW IVP ONE PRN PRN Reason: Nausea/Vomiting Stop: 12/09/17 14:23 Promethazine HCl (Pacu-Phenergan) 6.25 mg IM ONE PRN PRN Reason: Nausea/Vomiting Stop: 12/09/17 14:23 Senna (Senokot) 2 tab PO HSPRN PRN PRN Reason: Constipation Sodium Chloride (Flush - Normal Saline) 10 ml IVF Q12HR [facility] Sodium Chloride (Flush - Normal Saline) 10 ml IVF PRN PRN PRN Reason: Saline Flush Sterile Water (Water For Injection) 1.2 ml FS Q4H PRN PRN Reason: GEODON RECONSTITUTION Trazodone HCl (Desyrel) 50 mg PO [facility] Last Admin: 12/08/17 20:32 Dose: 50 mg Ziprasidone (Geodon) 10 mg IM Q4H PRN PRN Reason: Agitation Ziprasidone (Geodon) 20 mg PO BID[facility] Last Admin: 12/09/17 08:35 Dose: Not Given
[2017-12-09] MEDS ORDERED: PROPOFOL 200 MG/20 ML VIAL ONE (15:00)
[2017-12-09] MEDS ORDERED: Lidocaine 1% PF 5 ML VIAL ONE (15:00)
[2017-12-09] MEDS ORDERED: PHENYLEPHRINE-NS 100 MCG/ML 10 ML SYRINGE ONE (15:00)
[2017-12-09] MEDS ORDERED: ePHEDrine/0.9% NaCl/PF SYRINGE 50 mg/10 ml ONE (15:00)
--- NOTE | 2017-12-09 16:44 | PDOC.OP ---
Operative Note - Operative Note Operative Note: PROCEDURE: Right second toe amputation DATE OF PROCEDURE: 12/09/2017 SURGEON: Stoney Chamberlain M.D. PREOPERATIVE DIAGNOSES: Right second toe osteomyelitis and abscess POSTOPERATIVE DIAGNOSIS: Right second toe osteomyelitis and abscess HISTORY: Patient with severe dementia and diabetes with right second toe infection consistent with osteomyelitis by exam and x-ray. She has peripheral vascular disease that is not a good candidate for revascularization. The decision was made to proceed with amputation and wound care, with further vascular evaluation if she does not appear to be healing. PROCEDURE IN DETAIL: After informed consent was obtained from the patient's daughter and appropriate preoperative antibiotics were continued, the patient was taken to the operating room she was placed in supine position and general anesthesia was administered. She was prepped and draped in a standard sterile fashion and local anesthesia infused for digital block at the right second toe. A paddle-shaped incision was made around the base of the toe below the level of the abscess. The tissues at that level appeared to be healthy and there is no evidence of gross infection. The bone was transected and had a normal consistency. The base of the proximal phalanx was rongeured back and the wound was irrigated. The soft tissues were closed over the bony tissue and interrupted vertical mattress nylon sutures were placed at the skin incision but not tied down. The wound care team was then called to the operating room to place of VAC dressing to the wound site, with plans to perform a delayed primary closure if the wound appears to be clean and granulating at the next VAC dressing change. The toe abscess was opened on the back table and cultures were sent. The patient tolerated the procedure well. Estimated blood loss was minimal. There were no complications. Specimens are toe for pathology, and pus for Gram stain and culture.
[2017-12-09] MEDS: Vancomycin HCl 1.5 GM in Sodium Chloride 0.9% 250 ML 300 ML IVPB SCH (17:50)
[2017-12-09] MEDS: Aripiprazole 10 MG TAB PO SCH (20:46)
[2017-12-09] MEDS: traZODone HCl 50 MG TAB PO SCH (20:46)
[2017-12-10] MEDS: Piperacillin/Tazobactam 3.375 GM in Sodium Chloride 0.9% 100 ML IVPB SCH ×3 (00:02→12:12)
[2017-12-10 04:41] LABS: #Eosinphils 0.3 thou/uL (0.0-0.7); #Lymphocytes 1.7 thou/uL (1.20-3.40); #Monocytes 0.6 thou/uL (0.11-0.59); #Neutrophils 5.6 thou/uL (1.40-6.50); %Basophils 0.2 % (0.0-1.0); %Eosinophils 3.2 % (0.0-10.0); %Lymphocytes 20.5 % (21.0-51.0); %Monocytes 7.7 % (0.0-10.0); %Neutrophils 68.3 % (42.0-75.0); Anion Gap 11 mmol/L (10-20); BUN (Urea Nitrogen) 13 mg/dL (9.8-20.1); Calc. Creatinine Clearance 79 mL/min (70-130); Calcium 8.1 mg/dL (7.8-10.44); Carbon Dioxide 23 mmol/L (23-31); Chloride 108 mmol/L (98-107); Estimated GFR-MDRD Greater than 90; Glucose 118 mg/dL (80-115); Hemoglobin 10.7 g/dL (12.0-16.0); Mean Corpuscular HGB CONC 33.3 g/dL (32.0-36.0); Mean Corpuscular Hemoglobin 27.4 pg (27.0-31.0); Mean Corpuscular Volume 82.2 fl (81.0-99.0); Mean Platelet Volume 7.5 fL (7.4-10.4); Platelet Count 347 thou/uL (130-400); Potassium 3.5 mmol/L (3.5-5.1); RBC Distribution Width 13.4 % (11.5-14.5); Red Blood Cell (RBC) Count 3.91 mill/uL (4.20-5.40); Sodium 138 mmol/L (136-145); White Blood Cell (WBC) Count 8.1 thou/uL (4.8-10.8)
[2017-12-10] MEDS: Vancomycin HCl 1.5 GM in Sodium Chloride 0.9% 250 ML 300 ML IVPB SCH (05:54)
[2017-12-10] MEDS: Divalproex Sodium 125 mg Sprinkle Capsule PO SCH ×2 (09:17→20:40)
[2017-12-10] MEDS: Amlodipine 10 MG TAB PO SCH (09:18)
[2017-12-10] MEDS: Lithium Carbonate 150 MG CAP PO SCH ×2 (09:18→20:35)
[2017-12-10] MEDS: Potassium Chloride 10 MEQ TAB PO SCH (09:19)
[2017-12-10] MEDS: Ziprasidone 20 MG CAP PO SCH ×2 (09:19→16:46)
[2017-12-10] MEDS: Enoxaparin Sodium 40 MG/0.4 ML SYRINGE SC SCH (09:19)
[2017-12-10] MEDS: Famotidine 40 MG/4 ML VIAL SLOW IVP SCH ×2 (09:19→21:13)
--- NOTE | 2017-12-10 10:38 | PQF ---
CLINICAL DOCUMENTATION IMPROVEMENT CLARIFICATION FORM: ICD-10 Updated PLEASE DO AN ADDENDUM TO THE PROGRESS NOTE WITH ANY DOCUMENTATION UPDATES OR ADDITIONS AND CARRY THROUGH TO DC SUMMARY. THANK YOU. DATE: 12/10 ATTN: DR. Ying DEAN Please exercise your independent, professional judgment in responding to the clarification form. Clinical indicators are provided on the bottom of this form for your review Please check appropriate box(s): [x ] UTI [ ] Contaminated urine specimen without UTI [ ] Other diagnosis [ ] Unable to determine In addition, please specify: Present on Admission (POA): [x ] Yes [ ] No [ ] Unable to determine For continuity of documentation, please document condition throughout progress notes and discharge summary. Thank You. CLINICAL INDICATORS - SIGNS / SYMPTOMS / LABS URINALYSIS 12/08: SMALL BLOOD, LARGE LEUKOCYTE ESTERASE, RBC 7-10, WBC TNTC URINE CULTURE 12/08 - GROWING GNR RISK FACTORS: DEBILITATED PENITENTIARY PATIENT SEVERE DEMENTIA POSITIVE URINALYSIS TREATMENT: IV ANTIBIOTICS (ZOSYN 12/08 - PRESENT) IVF (NS 12/07 - PRESENT) THANK YOU! Kindra (This form is maintained as a part of the permanent medical record) 2014 [employer]. All Rights Reserved Kindra Hester RN, BSN [email or web address] Office: [phone] [facility]
--- NOTE | 2017-12-10 15:40 | PDOC.PN ---
- Subjective Encounter Start Date: 12/10/17 Encounter Start Time: 15:44 Subjective: Seen and examined POD1 following R toe osteomyelitis and UTI. -: No acute events overnight. - Objective MAR Reviewed: Yes Vital Signs & Weight: Vital Signs (12 hours) Temp Pulse Resp BP BP BP Pulse Ox 12/10/17 12:04 99.8 F H 100 18 117/76 90 L 12/10/17 09:38 12/10/17 09:18 79 148/75 H 12/10/17 08:00 98.1 F 79 18 92 L 12/10/17 07:32 98.1 F 79 18 148/75 H 92 L 12/10/17 04:00 98.0 F 88 16 155/74 H 98 Pulse Ox 12/10/17 12:04 12/10/17 09:38 96 12/10/17 09:18 12/10/17 08:00 12/10/17 07:32 12/10/17 04:00 Weight Admit Weight 139 lb Weight 139 lb I&O: 12/09/17 12/10/17 12/11/17 06:59 06:59 06:59 Intake Total 1590 Balance 1590 Result Diagrams: 12/10/17 04:04 12/10/17 04:04 Additional Labs: Accuchecks 12/10/17 12/10/17 12/09/17 11:08 04:02 19:29 POC Glucose 137 H 115 H 168 H 12/09/17 16:38 POC Glucose 106 Phys Exam - Physical Examination Constitutional: NAD HEENT: PERRLA, moist MMs, sclera anicteric, oral pharynx no lesions Neck: no JVD, supple, full ROM Respiratory: no wheezing, no rales, no rhonchi, clear to auscultation bilateral Cardiovascular: RRR, no significant murmur, no rub Gastrointestinal: soft, non-tender, no distention, positive bowel sounds Musculoskeletal: no edema, pulses present Neurological: non-focal Unable to cooperate w exam Dx/Plan (1) Toe osteomyelitis, left Code(s): M86.9 - OSTEOMYELITIS, UNSPECIFIED Status: Acute Comment: s/p amputation. Surgery service on board- will evaluate for vascularization/ healing. (2) UTI (urinary tract infection) Status: Acute Qualifiers: Urinary tract infection type: acute cystitis Hematuria presence: without hematuria Qualified Code(s): N30.00 - Acute cystitis without hematuria Comment: Blood culture grew gram negative rods. s/p Zosyn. (3) Orbital fracture Code(s): S02.80XA - FX OTH SKULL AND FACIAL BONES, UNSPECIFIED SIDE, INIT Status: Acute Qualifiers: Encounter type: subsequent encounter Fracture healing: with routine healing Comment: OMF reviewed. Will see patient on outpatient basis. (4) Severe dementia Code(s): F03.90 - UNSPECIFIED DEMENTIA WITHOUT BEHAVIORAL DISTURBANCE Status: Chronic Comment: Delirium precautions. f/u UDS and UA (5) HTN (hypertension) Code(s): I10 - ESSENTIAL (PRIMARY) HYPERTENSION Status: Acute Qualifiers: Hypertension type: essential hypertension Qualified Code(s): I10 - Essential (primary) hypertension Comment: Continue amlodipiine. Controlled. (6) DM2 (diabetes mellitus, type 2) Status: Chronic Qualifiers: Diabetes mellitus petroleum terminal plant operator insulin use: with petroleum terminal plant operator use Diabetes mellitus complication status: with unspecified complications Qualified Code(s) : E11.8 - Type 2 diabetes mellitus with unspecified complications; Z79.4 - terminal gauger (current) use of insulin; Z79.4 - residential (current) use of insulin; Z79.4 - residential (current) use of insulin; Z79.4 - terminal gauger (current) use of insulin Comment: Controlled. Continue SSI. A1c 6.6. (7) Sepsis Code(s): A41.9 - SEPSIS, UNSPECIFIED ORGANISM Status: Resolved Qualifiers: Sepsis type: sepsis due to unspecified organism Qualified Code(s): A41.9 - Sepsis, unspecified organism Comment: - Plan cont current plan of care, social work msw, DVT proph w/lovenox Continue wound vac f/u surgery recommendations Review of Systems - Medications/Allergies Allergies/Adverse Reactions: Allergies Allergy/AdvReac Type Severity Reaction Status Date / Time No Known Drug Allergies Allergy Verified 12/07/17 20:52 Medications: Current Medications Acetaminophen (Tylenol) 650 mg PO Q4H PRN PRN Reason: Headache/Fever or Pain Last Admin: 12/09/17 20:48 Dose: 650 mg Acetaminophen (Tylenol) 650 mg [place] Q4H PRN PRN Reason: Headache/Fever or Pain Hydrocodone Bitart/Acetaminophen ([place] 5/325) 1 tab PO Q4H PRN PRN Reason: Moderate Pain (4-6) Al Hydroxide/Mg Hydroxide (Maalox) 30 ml PO Q6H PRN PRN Reason: Heartburn or Indigestion Amlodipine Besylate (Norvasc) 10 mg PO DAILY [facility] Last Admin: 12/10/17 09:18 Dose: 10 mg Aripiprazole (Abilify) 20 mg PO HS [facility] Last Admin: 12/09/17 20:46 Dose: 20 mg Aspirin (Aspirin Chewable) 81 mg PO DAILY [facility] Last Admin: 12/10/17 09:18 Dose: 81 mg Benzonatate (Tessalon) 100 mg PO Q4H PRN PRN Reason: Cough Bisacodyl (Dulcolax) 10 mg PO DAILYPRN PRN PRN Reason: Constipation Bisacodyl (Dulcolax) 10 mg UT Q24H PRN PRN Reason: Constipation Calcium Carbonate (Tums) 1,000 mg PO Q4H PRN PRN Reason: Heartburn or Indigestion Clonidine (Catapres) 0.1 mg PO Q4H PRN PRN Reason: Systolic BP > 160 Dextrose/Water (Dextrose 50%) 25 gm SLOW IVP PRN PRN PRN Reason: Hypoglycemia Divalproex Sodium (Depakote Sprinkle) 250 mg PO BID [facility] Last Admin: 12/10/17 09:17 Dose: 250 mg Enoxaparin Sodium (Lovenox) 40 mg SC 0900 [facility] Last Admin: 12/10/17 09:19 Dose: 40 mg Famotidine (Pepcid) 20 mg SLOW IVP Q12HR [facility] Last Admin: 12/10/17 09:19 Dose: 20 mg Glucagon (Glucagon) 1 mg IM PRN PRN PRN Reason: Hypoglycemia Guaifenesin (Robitussin Sf) 200 mg PO Q4H PRN PRN Reason: Cough Hydralazine HCl (Apresoline) 10 mg SLOW IVP Q4H PRN PRN Reason: Systolic BP > 170 Last Admin: 12/08/17 18:18 Dose: 10 mg Piperacillin Sod/Tazobactam (Sod 3.375 gm/ Sodium Chloride) 100 mls @ 200 mls/ hr IVPB 0530,1130,1730,2330 [facility] Last Admin: 12/10/17 12:12 Dose: 100 mls Dextrose/Water (D5w) 1,000 mls @ 0 mls/hr IV .Q0M PRN; As Directed PRN Reason: Hypoglycemia Insulin Human Regular (Humulin R) 0 units SC .MODERATE SLIDING SC PRN PRN Reason: Moderate Correctional Scale Insulin Human Regular (Humulin R) 0 units SC .BEDTIME SLIDING SC PRN PRN Reason: Bedtime Correctional Scale Lactulose (Lactulose) 20 gm PO DAILYPRN PRN PRN Reason: Constipation [place] Carbonate ([place] Carbonate) 150 mg PO BID [facility] Last Admin: 12/10/17 09:18 Dose: 150 mg Loperamide HCl (Imodium) 4 mg PO ONE PRN PRN Reason: DIARRHEA/ LOOSE STOOL Stop: 01/07/18 04:16 Loperamide HCl (Imodium) 2 mg PO PRN PRN PRN Reason: Diarrhea/Loose Stools Loratadine (Claritin) 10 mg PO DAILYPRN PRN PRN Reason: Sinus Symptoms Memantine (Namenda) 10 mg PO [facility] Last Admin: 12/10/17 09:19 Dose: 10 mg Miscellaneous Medication (Pharmacy To Dose) 1 each IVPB PRN PRN PRN Reason: SSSI, R/O OSTEO Morphine Sulfate (Morphine) 2 mg SLOW IVP Q4H PRN PRN Reason: Severe Pain (7-10) Nitroglycerin (Nitrostat) 0.4 mg SL Q5MIN PRN PRN Reason: Chest Pain Ondansetron HCl (Zofran) 4 mg IVP Q6H PRN PRN Reason: Nausea/Vomiting Potassium Chloride (Klor-Con 10) 10 meq PO [facility] Last Admin: 12/10/17 09:19 Dose: 10 meq Senna (Senokot) 2 tab PO HSPRN PRN PRN Reason: Constipation Sodium Chloride (Flush - Normal Saline) 10 ml IVF Q12HR [facility] Last Admin: 12/10/17 09:20 Dose: Not Given Sodium Chloride (Flush - Normal Saline) 10 ml IVF PRN PRN PRN Reason: Saline Flush Sterile Water (Water For Injection) 1.2 ml FS Q4H PRN PRN Reason: GEODON RECONSTITUTION Trazodone HCl (Desyrel) 50 mg PO [facility] Last Admin: 12/09/17 20:46 Dose: 50 mg Ziprasidone (Geodon) 10 mg IM Q4H PRN PRN Reason: Agitation Ziprasidone (Geodon) 20 mg PO BID-[facility] Last Admin: 12/10/17 09:19 Dose: 20 mg
[2017-12-10 17:35] LABS: Vancomycin, Trough 26.7 ug/mL
[2017-12-10] MEDS: traZODone HCl 50 MG TAB PO SCH (20:35)
[2017-12-10] MEDS: Aripiprazole 10 MG TAB PO SCH (20:35)
--- NOTE | 2017-12-10 22:51 | PDOC.GSPN ---
Surgery Progress Note: Subj - Subjective Narrative: Patient denies pain in her foot. The VAC is in place with a good seal. I will see this with the wound care team tomorrow. She had gram-positive cocci in pairs on her Gram stain and final culture is still pending. Surgery Progress Note: Obj - Vital signs Vital signs: Vital Signs - Most Recent Temp Pulse Resp BP Pulse Ox 97.5 F L 83 16 148/69 H 95 12/10/17 19:37 12/10/17 19:37 12/10/17 19:37 12/10/17 19:37 12/10/17 19:37 Surgery Progress Note: Results - Labs Result Diagrams: 12/10/17 04:04 12/10/17 04:04 Lab results: Laboratory Results - last 24 hr 12/10/17 12/10/17 12/10/17 11:08 16:32 16:53 POC Glucose 137 H 109 Vancomycin Trough 26.7 12/10/17 20:35 POC Glucose 116 H Vancomycin Trough
[2017-12-11 04:42] LABS: #Eosinphils 0.2 thou/uL (0.0-0.7); #Lymphocytes 1.7 thou/uL (1.20-3.40); #Monocytes 0.8 thou/uL (0.11-0.59); #Neutrophils 6.8 thou/uL (1.40-6.50); %Basophils 0.2 % (0.0-1.0); %Eosinophils 2.1 % (0.0-10.0); %Monocytes 8.7 % (0.0-10.0); Hemoglobin 11.8 g/dL (12.0-16.0); Mean Corpuscular HGB CONC 33.7 g/dL (32.0-36.0); Mean Corpuscular Volume 83.2 fl (81.0-99.0); Mean Platelet Volume 7.8 fL (7.4-10.4); Platelet Count 369 thou/uL (130-400); RBC Distribution Width 13.4 % (11.5-14.5); White Blood Cell (WBC) Count 9.6 thou/uL (4.8-10.8)
[2017-12-11 04:50] LABS: Anion Gap 14 mmol/L (10-20); BUN (Urea Nitrogen) 8 mg/dL (9.8-20.1); Calc. Creatinine Clearance 83 mL/min (70-130); Calcium 9.2 mg/dL (7.8-10.44); Carbon Dioxide 23 mmol/L (23-31); Chloride 111 mmol/L (98-107); Estimated GFR-MDRD Greater than 90; Glucose 124 mg/dL (80-115); Potassium 3.5 mmol/L (3.5-5.1); Sodium 144 mmol/L (136-145)
[2017-12-11] MEDS: Potassium Chloride 10 MEQ TAB PO SCH (10:03)
[2017-12-11] MEDS: Divalproex Sodium 125 mg Sprinkle Capsule PO SCH ×2 (10:03→19:49)
[2017-12-11] MEDS: Amlodipine 10 MG TAB PO SCH (10:03)
[2017-12-11] MEDS: Lithium Carbonate 150 MG CAP PO SCH ×2 (10:04→19:49)
[2017-12-11] MEDS: Enoxaparin Sodium 40 MG/0.4 ML SYRINGE SC SCH (10:04)
[2017-12-11] MEDS: Ziprasidone 20 MG CAP PO SCH ×3 (10:04→19:49)
[2017-12-11] MEDS: Famotidine 40 MG/4 ML VIAL SLOW IVP SCH ×2 (10:05→19:53)
--- NOTE | 2017-12-11 19:37 | PDOC.PN ---
- Subjective Encounter Start Date: 12/11/17 Encounter Start Time: 19:30 Subjective: f/u for osteomyelitis R second to s/p amputation POD #2. Cx of toe -: showing E. coli and Staph spp. Currently receiving local wound care. -: No c/o pain. - Objective MAR Reviewed: Yes Vital Signs & Weight: Vital Signs (12 hours) Temp Pulse Resp BP BP BP Pulse Ox 12/11/17 17:41 99 16 151/78 H 95 12/11/17 10:03 87 176/87 H 12/11/17 08:00 97.5 F L 87 18 100 12/11/17 07:36 97.5 F L 87 18 180/93 H 100 Weight Admit Weight 139 lb Weight 139 lb I&O: 12/10/17 12/11/17 12/12/17 06:59 06:59 06:59 Intake Total 1590 210 Balance 1590 210 Result Diagrams: 12/11/17 04:13 12/11/17 04:13 Additional Labs: Accuchecks 12/11/17 12/11/17 12/11/17 16:03 11:04 05:24 POC Glucose 168 H 118 H 134 H 12/10/17 20:35 POC Glucose 116 H Microbiology 12/08/17 12:25 Urine Straight Catheter Urine Culture - Final Escherichia coli 12/09/17 10:49 Toe - Right Bacterial Culture - Preliminary 12/09/17 10:49 Toe - Right Escherichia coli Staphylococcus species 12/07/17 17:33 Venous blood - Left Hand Blood Culture - Preliminary NO GROWTH AT 48 HOURS 12/07/17 17:29 Venous blood - Left Arm Blood Culture - Preliminary NO GROWTH AT 48 HOURS Laboratory Tests 12/08/17 12/09/17 12:25 05:11 Hemoglobin A1c 6.6 H U Benzodiazepines Scrn Detected H Phys Exam - Physical Examination Constitutional: NAD alert, rambling speech contusion/hematoma R orbital region HEENT: PERRLA, moist MMs, sclera anicteric, oral pharynx no lesions Neck: no nodes, no JVD, supple Respiratory: no wheezing, no rales, no rhonchi, clear to auscultation bilateral S1, S2 Cardiovascular: RRR, no significant murmur, no rub, gallop Gastrointestinal: soft, non-tender, no distention, positive bowel sounds R foot dressing in place Musculoskeletal: no edema Neurological: normal sensation, moves all 4 limbs A x O x 1 Skin: no rash, normal turgor, cap refill <2 seconds Dx/Plan (1) Toe osteomyelitis, left Code(s): M86.9 - OSTEOMYELITIS, UNSPECIFIED Status: Acute Comment: s/p amputation R second toe POD #2, continue local WCT, pain control prn (2) Sepsis Code(s): A41.9 - SEPSIS, UNSPECIFIED ORGANISM Status: Suspected Qualifiers: Sepsis type: sepsis due to unspecified organism Qualified Code(s): A41.9 - Sepsis, unspecified organism Comment: Resolved, no current abx therapy (3) HTN (hypertension) Code(s): I10 - ESSENTIAL (PRIMARY) HYPERTENSION Status: Chronic Qualifiers: Hypertension type: essential hypertension Qualified Code(s): I10 - Essential (primary) hypertension Comment: Continue Amlodipine, serial monitoring (4) UTI (urinary tract infection) Status: Acute Qualifiers: Urinary tract infection type: acute cystitis Hematuria presence: without hematuria Qualified Code(s): N30.00 - Acute cystitis without hematuria Comment: E. coli in low population, abx d/c'd (5) Orbital fracture Code(s): S02.80XA - FX OTH SKULL AND FACIAL BONES, UNSPECIFIED SIDE, INIT Status: Acute Qualifiers: Encounter type: subsequent encounter Fracture healing: with routine healing Comment: OMF reviewed. Will see patient on outpatient basis. (6) DM2 (diabetes mellitus, type 2) Status: Chronic Qualifiers: Diabetes mellitus prison insulin use: with prison use Diabetes mellitus complication status: with unspecified complications Qualified Code(s) : E11.8 - Type 2 diabetes mellitus with unspecified complications; Z79.4 - correction (current) use of insulin; Z79.4 - correction (current) use of insulin; Z79.4 - correction (current) use of insulin; Z79.4 - intermediate manager (current) use of insulin Comment: Controlled. Continue SSI. A1c 6.6. ISS, resume Metformin when d/c (7) Severe dementia Code(s): F03.90 - UNSPECIFIED DEMENTIA WITHOUT BEHAVIORAL DISTURBANCE Status: Chronic Comment: Delirium precautions. Baseline mental functioning - Plan home health care social worker Stable overall -: Local WCT -: Pain control as clinically indicated -: Continue Namenda 10mg daily -: Geodon prn for combativeness * [facility]
[2017-12-11] MEDS: traZODone HCl 50 MG TAB PO SCH (19:49)
[2017-12-11] MEDS: Aripiprazole 10 MG TAB PO SCH (19:49)
--- NOTE | 2017-12-11 21:22 | PDOC.GSPN ---
Surgery Progress Note: Subj - Subjective Narrative: Wound is clean and granulating. Previously placed sutures secured for delayed primary closure. Bacitracin and gauze to be placed to wound daily. Return to surgery clinic 2 weeks for suture removal. Signing off. Surgery Progress Note: Obj - Vital signs Vital signs: Vital Signs - Most Recent Temp Pulse Resp BP Pulse Ox 98.3 F 81 18 133/83 97 12/11/17 20:00 12/11/17 20:00 12/11/17 20:00 12/11/17 20:00 12/11/17 20:00 Surgery Progress Note: Results - Labs Result Diagrams: 12/11/17 04:13 12/11/17 04:13 Lab results: Laboratory Results - last 24 hr 12/11/17 12/11/17 12/11/17 11:04 16:03 19:58 POC Glucose 118 H 168 H 138 H
[2017-12-12] MEDS: Enoxaparin Sodium 40 MG/0.4 ML SYRINGE SC SCH (08:12)
[2017-12-12] MEDS: Amlodipine 10 MG TAB PO SCH (08:13)
[2017-12-12] MEDS: Potassium Chloride 10 MEQ TAB PO SCH (08:13)
[2017-12-12] MEDS: Lithium Carbonate 150 MG CAP PO SCH ×2 (08:14→20:53)
[2017-12-12] MEDS: Ziprasidone 20 MG CAP PO SCH ×2 (08:15→16:50)
[2017-12-12] MEDS: Bacitracin Zinc 1 Packet TOP SCH (08:16)
[2017-12-12] MEDS: Famotidine 40 MG/4 ML VIAL SLOW IVP SCH (08:17)
[2017-12-12] MEDS: Divalproex Sodium 125 mg Sprinkle Capsule PO SCH ×2 (08:25→20:52)
[2017-12-12] MEDS: traZODone HCl 50 MG TAB PO SCH (20:52)
[2017-12-12] MEDS: Aripiprazole 10 MG TAB PO SCH (20:52)
[2017-12-12] MEDS: Famotidine 20 MG TAB PO SCH (20:52)
--- NOTE | 2017-12-12 23:20 | PDOC.PN ---
- Subjective Encounter Start Date: 12/12/17 Encounter Start Time: 15:00 Patient seen and examined for Rt 2nd toe osteomyelitis. No new complaints. No overnight events. No fever/chills - Objective MAR Reviewed: Yes Vital Signs & Weight: Vital Signs (12 hours) Temp Pulse Resp BP Pulse Ox 12/12/17 19:47 98.2 F 76 18 94 L 12/12/17 19:45 98.2 F 76 18 120/70 94 L 12/12/17 17:10 97.8 F 76 16 158/84 H 94 L 12/12/17 11:35 97.5 F L 72 16 136/84 97 Weight Admit Weight 139 lb Weight 139 lb I&O: 12/11/17 12/12/17 12/13/17 06:59 06:59 06:59 Intake Total 210 Balance 210 Result Diagrams: 12/11/17 04:13 12/11/17 04:13 Additional Labs: Accuchecks 12/12/17 12/12/17 12/12/17 19:45 17:11 11:35 POC Glucose 186 H 150 H 127 H 12/12/17 04:30 POC Glucose 157 H Phys Exam - Physical Examination Constitutional: NAD Respiratory: no wheezing, no rhonchi Cardiovascular: RRR, no rub Gastrointestinal: soft, non-tender, positive bowel sounds Musculoskeletal: no edema Rt feet dressing + Neurological: moves all 4 limbs Dx/Plan - Plan DVT proph w/SCDs IMPRESSION: 1. Sepsis with acute organ dysfunction due to Rt 2nd toe osteomyelitis/UTI 2. Dementia 3. E coli UTI 4. HTN/ PVD / Recent orbital fracture /Other issues per previous notes PLAN: * Start Ceftiaxone for UTI * Cont wound care * Cont current meds as below * DC planning in 24-48 hr if stable * DC Restraints as tolerated. Review of Systems - Review of Systems Respiratory: negative: Cough, Dry, Shortness of Breath, Hemoptysis, SOB with Excertion, Pleuritic Pain, Sputum, Wheezing Cardiovascular: negative: chest pain, palpitations, orthopnea, paroxysmal nocturnal dyspnea, edema, light headedness, other - Medications/Allergies Allergies/Adverse Reactions: Allergies Allergy/AdvReac Type Severity Reaction Status Date / Time No Known Drug Allergies Allergy Verified 12/07/17 20:52 Medications: Current Medications Acetaminophen (Tylenol) 650 mg PO Q4H PRN PRN Reason: Headache/Fever or Pain Last Admin: 12/09/17 20:48 Dose: 650 mg Acetaminophen (Tylenol) 650 mg [place] Q4H PRN PRN Reason: Headache/Fever or Pain Hydrocodone Bitart/Acetaminophen ([place] 5/325) 1 tab PO Q4H PRN PRN Reason: Moderate Pain (4-6) Al Hydroxide/Mg Hydroxide (Maalox) 30 ml PO Q6H PRN PRN Reason: Heartburn or Indigestion Amlodipine Besylate (Norvasc) 10 mg PO DAILY [facility] Last Admin: 12/12/17 08:13 Dose: 10 mg Aripiprazole (Abilify) 20 mg PO HS [facility] Last Admin: 12/12/17 20:52 Dose: 20 mg Aspirin (Aspirin Chewable) 81 mg PO DAILY [facility] Last Admin: 12/12/17 08:13 Dose: 81 mg Bacitracin Zinc (Bacitracin) 1 pk TOP QAM [facility] Last Admin: 12/12/17 08:16 Dose: 1 pk Benzonatate (Tessalon) 100 mg PO Q4H PRN PRN Reason: Cough Bisacodyl (Dulcolax) 10 mg PO DAILYPRN PRN PRN Reason: Constipation Bisacodyl (Dulcolax) 10 mg RI Q24H PRN PRN Reason: Constipation Calcium Carbonate (Tums) 1,000 mg PO Q4H PRN PRN Reason: Heartburn or Indigestion Clonidine (Catapres) 0.1 mg PO Q4H PRN PRN Reason: Systolic BP > 160 Dextrose/Water (Dextrose 50%) 25 gm SLOW IVP PRN PRN PRN Reason: Hypoglycemia Divalproex Sodium (Depakote Sprinkle) 250 mg PO BID [facility] Last Admin: 12/12/17 20:52 Dose: 250 mg Enoxaparin Sodium (Lovenox) 40 mg SC 0900 [facility] Last Admin: 12/12/17 08:12 Dose: 40 mg Famotidine (Pepcid) 20 mg PO BID [facility] Last Admin: 12/12/17 20:52 Dose: 20 mg Glucagon (Glucagon) 1 mg IM PRN PRN PRN Reason: Hypoglycemia Guaifenesin (Robitussin Sf) 200 mg PO Q4H PRN PRN Reason: Cough Hydralazine HCl (Apresoline) 10 mg SLOW IVP Q4H PRN PRN Reason: Systolic BP > 170 Last Admin: 12/08/17 18:18 Dose: 10 mg Dextrose/Water (D5w) 1,000 mls @ 0 mls/hr IV .Q0M PRN; As Directed PRN Reason: Hypoglycemia Insulin Human Regular (Humulin R) 0 units SC .MODERATE SLIDING SC PRN PRN Reason: Moderate Correctional Scale Insulin Human Regular (Humulin R) 0 units SC .BEDTIME SLIDING SC PRN PRN Reason: Bedtime Correctional Scale Lactulose (Lactulose) 20 gm PO DAILYPRN PRN PRN Reason: Constipation [place] Carbonate ([place]ora Carbonate) 150 mg PO BID [facility] Last Admin: 12/12/17 20:53 Dose: 150 mg Loperamide HCl (Imodium) 4 mg PO ONE PRN PRN Reason: DIARRHEA/ LOOSE STOOL Stop: 01/07/18 04:16 Loperamide HCl (Imodium) 2 mg PO PRN PRN PRN Reason: Diarrhea/Loose Stools Loratadine (Claritin) 10 mg PO DAILYPRN PRN PRN Reason: Sinus Symptoms Memantine (Namenda) 10 mg PO [facility] Last Admin: 12/12/17 08:13 Dose: 10 mg Morphine Sulfate (Morphine) 2 mg SLOW IVP Q4H PRN PRN Reason: Severe Pain (7-10) Last Admin: 12/11/17 11:42 Dose: 2 mg Nitroglycerin (Nitrostat) 0.4 mg SL Q5MIN PRN PRN Reason: Chest Pain Ondansetron HCl (Zofran) 4 mg IVP Q6H PRN PRN Reason: Nausea/Vomiting Potassium Chloride (Klor-Con 10) 10 meq PO QA-[facility] Last Admin: 12/12/17 08:13 Dose: 10 meq Senna (Senokot) 2 tab PO HSPRN PRN PRN Reason: Constipation Sodium Chloride (Flush - Normal Saline) 10 ml IVF Q12HR [facility] Last Admin: 12/12/17 20:53 Dose: 10 ml Sodium Chloride (Flush - Normal Saline) 10 ml IVF PRN PRN PRN Reason: Saline Flush Sterile Water (Water For Injection) 1.2 ml FS Q4H PRN PRN Reason: GEODON RECONSTITUTION Trazodone HCl (Desyrel) 50 mg PO [facility] Last Admin: 12/12/17 20:52 Dose: 50 mg Ziprasidone (Geodon) 10 mg IM Q4H PRN PRN Reason: Agitation Ziprasidone (Geodon) 20 mg PO BID-[facility] Last Admin: 12/12/17 16:50 Dose: 20 mg
[2017-12-13] MEDS: Divalproex Sodium 125 mg Sprinkle Capsule PO SCH ×2 (08:35→19:43)
[2017-12-13] MEDS: Lithium Carbonate 150 MG CAP PO SCH ×2 (08:36→19:44)
[2017-12-13] MEDS: Potassium Chloride 10 MEQ TAB PO SCH (08:36)
[2017-12-13] MEDS: Bacitracin Zinc 1 Packet TOP SCH (08:36)
[2017-12-13] MEDS: Famotidine 20 MG TAB PO SCH ×2 (08:36→19:44)
[2017-12-13] MEDS: Ziprasidone 20 MG CAP PO SCH ×2 (08:37→18:05)
[2017-12-13] MEDS: Enoxaparin Sodium 40 MG/0.4 ML SYRINGE SC SCH (08:41)
[2017-12-13] MEDS: Amlodipine 10 MG TAB PO SCH (08:41)
[2017-12-13] MEDS ORDERED: hydrALAZINE 20 MG/ML VIAL SLOW IVP PRN (09:04)
[2017-12-13] MEDS ORDERED: cefTRIAXone\\ROCEPHIN 1 GM in Sodium Chloride 0.9% 100 ML IVPB SCH (09:15)
[2017-12-13] MEDS ORDERED: cefTRIAXone\\ROCEPHIN 1 GM, Syringe 0.4 ML in Sterile Water 9.6 ML SLOW IVP SCH (10:00)
[2017-12-13] MEDS: traZODone HCl 50 MG TAB PO SCH (19:44)
[2017-12-13] MEDS: Aripiprazole 10 MG TAB PO SCH (19:44)
--- NOTE | 2017-12-13 22:51 | PDOC.PN ---
- Subjective Encounter Start Date: 12/13/17 Encounter Start Time: 11:00 Patient seen and examined. No acute issues. No overnight events - Objective MAR Reviewed: Yes Vital Signs & Weight: Vital Signs (12 hours) Temp Pulse Resp BP Pulse Ox 12/13/17 20:00 97.5 F L 70 18 115/79 12/13/17 19:46 97.5 F L 70 18 98 Weight Admit Weight 139 lb Weight 139 lb I&O: 12/12/17 12/13/17 12/14/17 06:59 06:59 06:59 Intake Total 110 360 Balance 110 360 Result Diagrams: 12/11/17 04:13 12/11/17 04:13 Additional Labs: Accuchecks 12/13/17 12/13/17 12/13/17 19:19 15:45 13:32 POC Glucose 144 H 163 H 148 H 12/13/17 04:29 POC Glucose 141 H Phys Exam - Physical Examination Constitutional: NAD Respiratory: no wheezing, no rhonchi Cardiovascular: RRR, no rub Gastrointestinal: soft, non-tender, positive bowel sounds Musculoskeletal: no edema Rt foot dressing + Dx/Plan - Plan continue antibiotics, DVT proph w/lovenox, DVT proph w/SCDs IMPRESSION/PLAN: 1. Sepsis with acute organ dysfunction due to Rt 2nd toe osteomyelitis/ E coli UTI Cont Ceftriaxone s/p 2nd toe amputation Cont wound care Surgery signed off 2. Dementia Cont home meds 3. HTN Will change Amlodipine to 5 mg BID 4. PVD / Recent orbital fracture /Other issues per previous notes 5. Disposition DC planning in 24 hr if stable DC Restraints as tolerated Review of Systems - Review of Systems Other: Cannot obtain due to current mentation - Medications/Allergies Allergies/Adverse Reactions: Allergies Allergy/AdvReac Type Severity Reaction Status Date / Time No Known Drug Allergies Allergy Verified 12/07/17 20:52 Medications: Current Medications Acetaminophen (Tylenol) 650 mg PO Q4H PRN PRN Reason: Headache/Fever or Pain Last Admin: 12/09/17 20:48 Dose: 650 mg Acetaminophen (Tylenol) 650 mg [place] Q4H PRN PRN Reason: Headache/Fever or Pain Hydrocodone Bitart/Acetaminophen ([place] 5/325) 1 tab PO Q4H PRN PRN Reason: Moderate Pain (4-6) Al Hydroxide/Mg Hydroxide (Maalox) 30 ml PO Q6H PRN PRN Reason: Heartburn or Indigestion Amlodipine Besylate (Norvasc) 10 mg PO DAILY [facility] Last Admin: 12/13/17 08:41 Dose: 10 mg Aripiprazole (Abilify) 20 mg PO HS [facility] Last Admin: 12/13/17 19:44 Dose: 20 mg Aspirin (Aspirin Chewable) 81 mg PO DAILY [facility] Last Admin: 12/13/17 08:36 Dose: 81 mg Bacitracin Zinc (Bacitracin) 1 pk TOP QAM [facility] Last Admin: 12/13/17 08:36 Dose: 1 pk Benzonatate (Tessalon) 100 mg PO Q4H PRN PRN Reason: Cough Bisacodyl (Dulcolax) 10 mg PO DAILYPRN PRN PRN Reason: Constipation Bisacodyl (Dulcolax) 10 mg [place] Q24H PRN PRN Reason: Constipation Calcium Carbonate (Tums) 1,000 mg PO Q4H PRN PRN Reason: Heartburn or Indigestion Clonidine (Catapres) 0.1 mg PO Q4H PRN PRN Reason: Systolic BP > 160 Dextrose/Water (Dextrose 50%) 25 gm SLOW IVP PRN PRN PRN Reason: Hypoglycemia Divalproex Sodium (Depakote Sprinkle) 250 mg PO BID [facility] Last Admin: 12/13/17 19:43 Dose: 250 mg Enoxaparin Sodium (Lovenox) 40 mg SC 0900 [facility] Last Admin: 12/13/17 08:41 Dose: 40 mg Famotidine (Pepcid) 20 mg PO BID [facility] Last Admin: 12/13/17 19:44 Dose: 20 mg Glucagon (Glucagon) 1 mg IM PRN PRN PRN Reason: Hypoglycemia Guaifenesin (Robitussin Sf) 200 mg PO Q4H PRN PRN Reason: Cough Hydralazine HCl (Apresoline) 10 mg SLOW IVP Q4H PRN PRN Reason: SBP Greater Than 180 Dextrose/Water (D5w) 1,000 mls @ 0 mls/hr IV .Q0M PRN; As Directed PRN Reason: Hypoglycemia Ceftriaxone Sodium 1 gm/ (Syringe 0.4 ml/ Sterile Water) 10 mls @ 120 mls/hr SLOW IVP 1000 [facility] Last Admin: 12/13/17 10:18 Dose: 10 mls Insulin Human Regular (Humulin R) 0 units SC .MODERATE SLIDING SC PRN PRN Reason: Moderate Correctional Scale Last Admin: 12/13/17 15:52 Dose: 2 unit Insulin Human Regular (Humulin R) 0 units SC .BEDTIME SLIDING SC PRN PRN Reason: Bedtime Correctional Scale Lactulose (Lactulose) 20 gm PO DAILYPRN PRN PRN Reason: Constipation [place] Carbonate ([place] Carbonate) 150 mg PO BID [facility] Last Admin: 12/13/17 19:44 Dose: 150 mg Loperamide HCl (Imodium) 4 mg PO ONE PRN PRN Reason: DIARRHEA/ LOOSE STOOL Stop: 01/07/18 04:16 Loperamide HCl (Imodium) 2 mg PO PRN PRN PRN Reason: Diarrhea/Loose Stools Loratadine (Claritin) 10 mg PO DAILYPRN PRN PRN Reason: Sinus Symptoms Memantine (Namenda) 10 mg PO [facility] Last Admin: 12/13/17 08:36 Dose: 10 mg Morphine Sulfate (Morphine) 2 mg SLOW IVP Q4H PRN PRN Reason: Severe Pain (7-10) Last Admin: 12/11/17 11:42 Dose: 2 mg Nitroglycerin (Nitrostat) 0.4 mg SL Q5MIN PRN PRN Reason: Chest Pain Ondansetron HCl (Zofran) 4 mg IVP Q6H PRN PRN Reason: Nausea/Vomiting Potassium Chloride (Klor-Con 10) 10 meq PO QA-[facility] Last Admin: 12/13/17 08:36 Dose: 10 meq Senna (Senokot) 2 tab PO HSPRN PRN PRN Reason: Constipation Sodium Chloride (Flush - Normal Saline) 10 ml IVF Q12HR [facility] Last Admin: 12/13/17 19:44 Dose: 10 ml Sodium Chloride (Flush - Normal Saline) 10 ml IVF PRN PRN PRN Reason: Saline Flush Sterile Water (Water For Injection) 1.2 ml FS Q4H PRN PRN Reason: GEODON RECONSTITUTION Trazodone HCl (Desyrel) 50 mg PO [facility] Last Admin: 12/13/17 19:44 Dose: 50 mg Ziprasidone (Geodon) 10 mg IM Q4H PRN PRN Reason: Agitation Ziprasidone (Geodon) 20 mg PO BID-[facility] Last Admin: 12/13/17 18:05 Dose: 20 mg
[2017-12-14 05:29] LABS: #Eosinphils 0.3 thou/uL (0.0-0.7); #Lymphocytes 2.1 thou/uL (1.20-3.40); #Monocytes 0.7 thou/uL (0.11-0.59); #Neutrophils 6.8 thou/uL (1.40-6.50); %Basophils 0.2 % (0.0-1.0); %Eosinophils 2.8 % (0.0-10.0); %Lymphocytes 20.8 % (21.0-51.0); %Monocytes 7.4 % (0.0-10.0); %Neutrophils 68.8 % (42.0-75.0); Hemoglobin 11.7 g/dL (12.0-16.0); Mean Corpuscular HGB CONC 32.8 g/dL (32.0-36.0); Mean Corpuscular Volume 82.2 fl (81.0-99.0); Mean Platelet Volume 7.5 fL (7.4-10.4); Platelet Count 373 thou/uL (130-400); RBC Distribution Width 13.3 % (11.5-14.5); Red Blood Cell (RBC) Count 4.32 mill/uL (4.20-5.40); White Blood Cell (WBC) Count 9.8 thou/uL (4.8-10.8)
[2017-12-14 05:46] LABS: Albumin 3.1 g/dL (3.4-4.8); Anion Gap 11 mmol/L (10-20); BUN (Urea Nitrogen) 13 mg/dL (9.8-20.1); BUN/Creatinine Ratio 18.31; Calc. Creatinine Clearance 83 mL/min (70-130); Calcium 8.8 mg/dL (7.8-10.44); Carbon Dioxide 24 mmol/L (23-31); Chloride 108 mmol/L (98-107); Estimated GFR-MDRD Greater than 90; Glucose 130 mg/dL (80-115); Magnesium 1.9 mg/dL (1.6-2.6); Phosphorus 3.4 mg/dL (2.3-4.7); Potassium 3.6 mmol/L (3.5-5.1); Sodium 139 mmol/L (136-145)
[2017-12-14 07:12] VITALS: BP 128/72; TEMP 98.2
[2017-12-14] MEDS: Divalproex Sodium 125 mg Sprinkle Capsule PO SCH (08:25)
[2017-12-14] MEDS: Ziprasidone 20 MG CAP PO SCH (08:26)
[2017-12-14] MEDS: Potassium Chloride 10 MEQ TAB PO SCH (08:26)
[2017-12-14] MEDS: Lithium Carbonate 150 MG CAP PO SCH (08:26)
[2017-12-14] MEDS: Famotidine 20 MG TAB PO SCH (08:26)
[2017-12-14] MEDS: Enoxaparin Sodium 40 MG/0.4 ML SYRINGE SC SCH (08:27)
[2017-12-14] MEDS: Bacitracin Zinc 1 Packet TOP SCH (08:27)
[2017-12-14] MEDS ORDERED: Amlodipine 5 MG TAB PO SCH (09:00)
--- NOTE | 2017-12-14 10:01 | PDOC.PN ---
- Subjective Encounter Start Date: 12/14/17 Encounter Start Time: 11:15 Subjective: Patient demented, talkative but not making any sense. Restrained for -: attempting to get out of bed. No events overnight. - Objective MAR Reviewed: Yes Vital Signs & Weight: Vital Signs (12 hours) Temp Pulse Resp BP BP Pulse Ox 12/14/17 08:27 71 128/72 12/14/17 08:00 98.2 F 71 16 97 12/14/17 07:08 98.2 F 71 16 128/72 97 12/14/17 00:00 97.3 F L 59 L 16 128/79 96 Weight Admit Weight 139 lb Weight 139 lb I&O: 12/13/17 12/14/17 12/15/17 06:59 06:59 06:59 Intake Total 110 610 Balance 110 610 Result Diagrams: 12/14/17 04:37 12/14/17 04:37 Additional Labs: Accuchecks 12/14/17 12/13/17 12/13/17 05:10 19:19 15:45 POC Glucose 130 H 144 H 163 H 12/13/17 13:32 POC Glucose 148 H Phys Exam - Physical Examination Constitutional: NAD HEENT: moist MMs Respiratory: no wheezing, no rales, no rhonchi Cardiovascular: RRR, no significant murmur Gastrointestinal: soft, positive bowel sounds Neurological: moves all 4 limbs Deviation from normal: severe dementia Dx/Plan (1) Toe osteomyelitis, left Code(s): M86.9 - OSTEOMYELITIS, UNSPECIFIED Status: Acute Comment: s/p amputation R second toe POD #5, continue local WCT, pain control prn, culture growing back E. coli sensitive to floroquinolones (2) UTI (urinary tract infection) Status: Acute Qualifiers: Urinary tract infection type: acute cystitis Hematuria presence: without hematuria Qualified Code(s): N30.00 - Acute cystitis without hematuria Comment: E. coli in low population, also sensitive to cipro (3) DM2 (diabetes mellitus, type 2) Status: Chronic Qualifiers: Diabetes mellitus adjunct faculty for medical terminology insulin use: with adjunct faculty for medical terminology use Diabetes mellitus complication status: with unspecified complications Qualified Code(s) : E11.8 - Type 2 diabetes mellitus with unspecified complications; Z79.4 - terminal operator (current) use of insulin; Z79.4 - long-term (current) use of insulin; Z79.4 - long-term (current) use of insulin; Z79.4 - long-term (current) use of insulin Comment: Controlled. Continue SSI. A1c 6.6. ISS, resume Metformin when d/c (4) HTN (hypertension) Code(s): I10 - ESSENTIAL (PRIMARY) HYPERTENSION Status: Chronic Qualifiers: Hypertension type: essential hypertension Qualified Code(s): I10 - Essential (primary) hypertension Comment: Continue Amlodipine, well controlled (5) Severe dementia Code(s): F03.90 - UNSPECIFIED DEMENTIA WITHOUT BEHAVIORAL DISTURBANCE Status: Chronic Comment: Delirium precautions. Baseline mental functioning (6) Sepsis Code(s): A41.9 - SEPSIS, UNSPECIFIED ORGANISM Status: Resolved Qualifiers: Sepsis type: sepsis due to unspecified organism Qualified Code(s): A41.9 - Sepsis, unspecified organism - Plan cont current plan of care, continue antibiotics D/C back to long term, f/u with General Surgery as outpatient in 2 weeks -: for suture removal. 7 more days of antibiotics for total of 14 days. * . - Discharge Day Encounter end time: 11:50
--- NOTE | 2017-12-14 13:39 | DIS ---
PRIMARY CARE PHYSICIAN: Dr. Iván Liang. REASON FOR ADMISSION: Right second toe osteomyelitis. DISCHARGE DIAGNOSES: 1. Right toe osteomyelitis, status post amputation. With Escherichia coli growing back from culture . 2. Escherichia coli urinary tract infection. 3. Diabetes mellitus, type 2. 4. Hypertension. 5. Severe dementia. 6. Sepsis, resolved. PROCEDURES: 1. X-ray of the right foot showing soft tissue swelling over the level of the great toe and second t oe, mild cortical irregularity of the distal phalanx of the second toe. 2. Right second toe amputation with wound left to heal by secondary intent. CONSULTATIONS: 1. General Surgery, Dr. Chamberlain. 2. Vascular Surgery, Dr. Fontenot. LABORATORY DATA: Both the urine and wound cultures grew back E. coli sensitive to cephalosporins and fluoroquinolones. SUMMARY OF HOSPITAL COURSE: This is a 62-year-old female with severe dementia, presenting from [facility] with a right second toe wound. Of note, the patient has fallen twice earlier in the month, m ost recently about a week previous where she was found to have a right orbital fracture with nasal fr actures. She is supposed to follow up with oromaxillofacial surgeon. She returned to the ER for thi s right second toe wound. X-ray was concerning for osteomyelitis. She was admitted. General Surger y was consulted and determined this was likely osteomyelitis. She did consult Dr. Chamberlain. I did co nsult Vascular Surgery to see if possibly a revascularization would be beneficial, but they determine d it would not, so Dr. Chamberlain took the patient back to the OR and amputated the second toe. She did leave it open to heal by secondary intent. The patient was put on Rocephin in the hospital. The E. coli from both the wound culture as well as her urine grew back which was sensitive to the Rocephin and also to the fluoroquinolones. She is breathing well and General Surgery signed off. The patient was switched to oral ciprofloxacin to complete a full 14-day course of antibiotics. She was being d ischarged back to the care home. DISCHARGE MANAGEMENT: Discharge back to care home. ACTIVITIES: As tolerated with fall precautions. DIET: Diabetic diet. THERAPY: Physical and occupational therapy and wound care. DISCHARGE MEDICATIONS: 1. Ciprofloxacin 500 mg twice a day for another 7 days and to resume all previous home medications. 2. Amlodipine 5 mg twice a day. 3. Bacitracin ointment apply topically. 4. Potassium chloride 10 mEq daily. 5. Lantus 15 units twice a day. 6. Mystic carbonate 150 mg twice a day. 7. Loperamide 4 mg as needed. 8. Geodon 20 mg twice a day. 9. Depakote sprinkles 2 caps twice a day. 10. Aspirin 81 mg daily. 11. Metformin 1000 mg twice a day. 12. Trazodone 50 mg at night. 13. Memantine 10 mg in the morning. 14. Abilify 20 mg at night. 15. Acetaminophen 650 mg as needed. Patient is to follow up with Dr. Chamberlain in her clinic in 2 weeks for suture removal and with Oromaxi llofacial Surgery as scheduled.
[2017-12-14] MEDS ORDERED: Ciprofloxacin 500 MG TAB PO SCH (20:00)
== END 2017-12-14 13:59 | DRG 854 ==
LOC: ERS 16:20 → T4-B 19:05
PROVIDERS: ADMIT Internal Medicine; ATTEND Internal Medicine
PROC: 0Y6R0Z1 Detachment at Right 2nd Toe, High, Open Approach (ICD-10-PCS; principal; 2017-12-09)
DX: A41.9 Sepsis, unspecified organism (principal); M86.171 Other acute osteomyelitis, right ankle and foot; N30.00 Acute cystitis without hematuria; L02.611 Cutaneous abscess of right foot; E11.52 Type 2 diabetes mellitus with diabetic peripheral angiopathy with gangrene; I96 Gangrene, not elsewhere classified; E11.69 Type 2 diabetes mellitus with other specified complication; F03.90 Unspecified dementia, unspecified severity, without behavioral disturbance, psychotic disturbance, mood disturbance, and anxiety; Z79.4 Long term (current) use of insulin; I10 Essential (primary) hypertension; B96.20 Unspecified Escherichia coli [E. coli] as the cause of diseases classified elsewhere; S02.80XD Fracture of other specified skull and facial bones, unspecified side, subsequent encounter for fracture with routine healing; L03.031 Cellulitis of right toe; F10.21 Alcohol dependence, in remission; S02.2XXD Fracture of nasal bones, subsequent encounter for fracture with routine healing; F31.9 Bipolar disorder, unspecified; Z87.891 Personal history of nicotine dependence
CPT/HCPCS: 36415; 36416; 80048; 80053; 80069; 80202; 80306; 81001; 83036; 83605; 83735; 85025; 85652; 86140; 87040; 87070; 87076; 87077; 87086; 87186; 87205; 88305; 88311; 96365; 96367; 96368; 96375; A4216; G8978-GP-CL; G8978-GP-CM; G8979-GP-CJ; G8979-GP-CK; G8987-GO-CM; G8988-GO-CM; G8989-GO-CM; J0360; J0696; J1650; J1815; J2001; J2060; J2250; J2270; J2543; J2704; J3010; J3370; J3486; J3490; J7050

== ENCOUNTER 2018-02-26 08:04 | Outpatient (CLI) | payer OTHER ==
[2018-02-26] MEDS ORDERED: Sodium Chloride 0.9% 15 ML NEB ONE (09:00)
--- NOTE | 2018-02-26 09:41 | PRG ---
DATE OF SERVICE: 02/26/2018 CHIEF COMPLAINT: Ulcer right foot. HISTORY OF PRESENT ILLNESS: This is a 62-year-old female who presents to our clinic today with an ul ceration on her right foot. She had a second toe amputation we believe about 6 weeks ago. The patie nt is a poor historian and some of the history was obtained from the transport worker from [facility], the home in which she is currently residing. He states that they have been trying various tamy atments including wound VAC, Santyl and wet to dry dressings. Nothing has been improved. He indicat es that Dr. Chamberlain, her surgeon, has requested that we see if she would be able to tolerate or benef it from hyperbaric oxygen therapy before proceeding with more proximal amputation. PAST MEDICAL HISTORY/PAST SURGICAL HISTORY/MEDICATIONS/ALLERGIES/ FAMILY HISTORY/SOCIAL HISTORY: Was documented in the paper chart. I reviewed these and deemed them accurate. REVIEW OF SYSTEMS: CONSTITUTIONAL: Denies nausea, vomiting, fevers or chills. INTEGUMENTARY: Relates sore to the right foot without pain. PHYSICAL EXAMINATION: VITAL SIGNS: Temperature 98.1, pulse 88, respirations 18, blood pressure 171/76. Blood sugar was 14 5 this morning. VASCULAR EXAM: Dorsalis pedis and posterior tibial pulses, nonpalpable to the right foot. There is absent hair growth. The temperature gradient is warm to cool from proximal to distal. There is no s welling, no varicosities present. NEUROLOGICAL: Protective threshold is diminished on cursory exam. INTEGUMENTARY: There is an ulceration to the right second toe amputation site, it measures 1.7 cm x 1.0 cm x 0.1 cm of depth. There is 95% slough with 5% granulation tissue. There is no periwound jose juan thema, edema or warmth. It does not probe to deeper tissues, tendon or bone. There is no drainage. There is no periwound erythema, edema or warmth. ASSESSMENT: 1. 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 2. Diabetes with peripheral vascular disease. PLAN: 1. Full thickness debridement of subcutaneous tissue layer removing as much slough as possible from the wound base and biofilm. The patient tolerated the procedure well. 2. We are going to get her scheduled for transcutaneous oxygen measurements and determine if hyperba aleksandar oxygen therapy would be warranted. 3. I am also giving her a referral to animal husbandman, Dr. Palmer, for evaluation of her peripheral vascular disease, see if there is any macrovascular disease that could be improved. 4. We are going to continue with the Santyl dressing changes on a daily basis. 5. We will have her follow up with me in 2 weeks.
== END 2018-02-26 08:05 | disposition home or self-care (01) ==
LOC: WCC 08:04
PROVIDERS: ATTEND Podiatrist Foot & Ankle Surgery
DX: E11.621 Type 2 diabetes mellitus with foot ulcer (principal); L97.519 Non-pressure chronic ulcer of other part of right foot with unspecified severity; E11.51 Type 2 diabetes mellitus with diabetic peripheral angiopathy without gangrene; Z89.421 Acquired absence of other right toe(s)
CPT/HCPCS: A4218

== ENCOUNTER 2018-03-03 10:04 | Outpatient (CLI) | payer OTHER ==
--- NOTE | 2018-03-09 03:23 | TCOM ---
TRANSCUTANEOUS OXIMETRY ASSESSMENT DATE OF STUDY: 03/03/2018 CLINICAL INFORMATION: Ms. Darlene Perez is a 62-year-old with a past medical history significant fo r diabetes mellitus and hypertension. The patient underwent right second toe amputation for osteomye litis and abscess of the right second toe on 12/09/[address] Stoney Chamberlain. She is now referred f or transcutaneous oxygen mapping of the distal right lower extremity. IMPRESSION: The chest reference value is within normal limits under ambient conditions. All three transcutaneous oxygen values of the right foot and ankle are within normal limits under amb ient conditions.
== END 2018-03-03 10:05 | disposition home or self-care (01) ==
LOC: WCC 10:04
PROVIDERS: ATTEND Family Medicine
DX: L97.519 Non-pressure chronic ulcer of other part of right foot with unspecified severity (principal); Z89.421 Acquired absence of other right toe(s)
CPT/HCPCS: 93923

== ENCOUNTER 2018-03-12 10:20 | Outpatient (CLI) | payer OTHER ==
--- NOTE | 2018-03-12 12:08 | PRG ---
DATE OF SERVICE: 03/12/2018 SUBJECTIVE: This is a 62-year-old female who returns today for followup right foot second toe ulcera tion status post right second toe amputation. She has done well over the last week. She did have he r transcutaneous oxygen measurements done for evaluation for possible hyperbaric. These measurements were within normal limits and more than likely would not be a candidate for hyperbaric oxygen. PHYSICAL EXAMINATION: Ulcer measures 1.5 cm x 1.0 cm x 0.3 cm depth with 90% slough and 5% granulati on tissue within the wound. No periwound erythema, edema or warmth. Does not probe to tendon or bon e. No signs of infection. ASSESSMENT: 1. Non-pressure chronic ulceration to the right second toe, status post right second amputation. 2. Peripheral vascular disease. PLAN: I would like her to continue to follow up with Dr. Palmer for macrovascular evaluation as i t appears that the hyperbaric will not be beneficial. She may benefit from some other revascularizat ion procedures. Otherwise, she may require a more proximal amputation. The patient to continue with Santyl dressing changes and follow up with me in 2 weeks.
== END 2018-03-12 10:21 | disposition home or self-care (01) ==
LOC: WCC 10:20
PROVIDERS: ATTEND Podiatrist Foot & Ankle Surgery
DX: L97.519 Non-pressure chronic ulcer of other part of right foot with unspecified severity (principal); I73.9 Peripheral vascular disease, unspecified